=== PATIENT | male | born 1965 | race Caucasian/White ===

== ENCOUNTER 2017-12-24 20:12 | Emergency (ER) | payer OTHER ==
[2017-12-24 20:19] LABS: Glucose,Whole Blood 322 mg/dL (75-99)
[2017-12-24 20:35] LABS: Basophils % (A) 0 %; Eosinophils # (A) 0.1 k/uL (0-0.7); Eosinophils % (A) 1 %; HCT 41.6 % (39.0-53.0); HGB 14.1 gm/dL (13.0-17.5); Lymphocytes % (A) 19 %; MCH 30.1 pg (25.0-35.0); MCV 88.5 fL (80.0-100.0); Mean Platelet Volume 7.9; Monocytes # (A) 0.4 k/uL (0-1.0); Monocytes % (A) 4 %; Neutrophils # (A) 7.9 k/uL (1.3-7.7); Neutrophils % (A) 75 %; Platelet Count 149 k/uL (150-450); RDW 14.7 % (11.5-15.5); WBC 10.6 k/uL (3.8-10.6)
[2017-12-24 20:46] LABS: ALT 50 U/L (21-72); AST 48 U/L (17-59); Albumin 4.3 g/dL (3.5-5.0); Alcohol <10 mg/dL; Alkaline Phosphatase 210 U/L (38-126); Amylase 53 U/L (30-110); Anion Gap 15 mmol/L; Blood Urea Nitrogen 13 mg/dL (9-20); Carbon Dioxide 25 mmol/L (22-30); Chloride 100 mmol/L (98-107); Glucose 360 mg/dL (74-99); Lipase 305 U/L (23-300); Potassium 3.5 mmol/L (3.5-5.1); Sodium 140 mmol/L (137-145); Total Protein 7.1 g/dL (6.3-8.2)
[2017-12-24 20:51] LABS: Prothrombin Time 9.8 sec (9.0-12.0)
[2017-12-24] MEDS ORDERED: ACETAMINOPHEN IV (For NPO) 1,000 MG in EMPTY BAG 1 BAG IVPB STA (20:58)
[2017-12-24 21:00] LABS: Creatine Kinase 299 U/L (55-170)
[2017-12-24 21:00] LABS: Appearance,Urine Clear (Clear); Bilirubin,Urine Negative (Negative); Blood,Urine Small (Negative); Color,Urine Light Yellow; Glucose,Urine (UA) 4+ (Negative); Ketones,Urine Negative (Negative); Leukocyte Esterase,Urine Negative (Negative); Nitrite,Urine Negative (Negative); PH, Urine 5.5 (5.0-8.0); Protein,Urine Negative (Negative); RBC,Urine <1 /hpf (0-5); Specific Gravity,Urine 1.031 (1.001-1.035); Squamous Epithelial Cell,Urine <1 /hpf (0-4); Urobilinogen,Urine <2.0 mg/dL (<2.0); WBC,Urine <1 /hpf (0-5)
[2017-12-24] MEDS ORDERED: SODIUM CHLORIDE 0.9% 1,000 ML IV SCH (21:00)
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
[2017-12-24 21:10] LABS: Amphetamine Screen,Urine Not Detected (NotDetected); Barbiturate Screen,Urine Not Detected (NotDetected); Benzodiazepines Screen,Urine Not Detected (NotDetected); Cocaine Screen,Urine Not Detected (NotDetected); Methadone Screen, Urine Not Detected (NotDetected); Opiate Screen,Urine Not Detected (NotDetected); Oxycodone Screen, Urine Not Detected (NotDetected); Phencyclidine Screen,Urine Not Detected (NotDetected); Tricyclic Antidepressant,Urine Not Detected (NotDetected); Urn Cannabinoid Scrn Not Detected (NotDetected)
[2017-12-24 21:12] LABS: Troponin I <0.012 ng/mL (0.000-0.034)
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
[2017-12-24] MEDS ORDERED: ceFAZolin 1,000 MG in DEXTROSE/WATER 1 50ML.BAG IVPB STA (21:22)
[2017-12-24 21:23] LABS: Creatine Kinase MB 4.8 ng/mL (0.0-2.4)
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
--- NOTE | 2017-12-24 22:27 | XR ---
EXAMINATION TYPE: XR chest 1V portable DATE OF EXAM: 12/24/2017 COMPARISON: 12/24/2017 HISTORY: Chest pain TECHNIQUE: Single frontal view of the chest is obtained. FINDINGS: There is a new right-sided chest tube that appears in good position. I see no pneumothorax . Trachea is midline. Heart size is normal. There is no heart failure. There is left axillary pacemak er with the lead tips in the right ventricle. There are chest leads. IMPRESSION: Chest tube appears in good position. No pneumothorax. Heart and lungs are unchanged.
[2017-12-24 23:50] VITALS: BP 127/80; PULSE 95; RESP 16; TEMP 98.1
== END 2017-12-24 23:10 | disposition other institution (70) ==
LOC: EC 20:12
DX: S06.0X0A Concussion without loss of consciousness, initial encounter (principal); S27.0XXA Traumatic pneumothorax, initial encounter; S22.42XA Multiple fractures of ribs, left side, initial encounter for closed fracture; S01.01XA Laceration without foreign body of scalp, initial encounter; S30.1XXA Contusion of abdominal wall, initial encounter; S70.12XA Contusion of left thigh, initial encounter; S60.812A Abrasion of left wrist, initial encounter; S80.212A Abrasion, left knee, initial encounter; S80.211A Abrasion, right knee, initial encounter; S50.311A Abrasion of right elbow, initial encounter; E11.65 Type 2 diabetes mellitus with hyperglycemia; Z79.82 Long term (current) use of aspirin; Z79.4 Long term (current) use of insulin; Z79.899 Other long term (current) drug therapy; V85.0XXA Driver of special construction vehicle injured in traffic accident, initial encounter; Y92.410 Unspecified street and highway as the place of occurrence of the external cause
CPT/HCPCS: 99291; 32551; 96365 ×2; 96361; 36415; 93005; 86900; 86901; 80053; 82150; 82550; 82553; 83605; 83690; 84484; 85025; 85610; 85730; 86850; 81001; 80306; 80320; 72170; 71045; 72125; 70486; 70450; 71260; 74177; C1729; J0690; J0131; Q9967

== ENCOUNTER 2020-01-17 20:16 | Observation (INO) | payer MEDICARE, OTHER ==
[2020-01-17 20:32] LABS: Glucose,Whole Blood 287 mg/dL (75-99)
[2020-01-17 21:13] LABS: Basophils % (A) 0 %; Eosinophils # (A) 0.1 k/uL (0-0.7); Eosinophils % (A) 2 %; HCT 40.2 % (39.0-53.0); HGB 13.8 gm/dL (13.0-17.5); Lymphocytes # (A) 2.6 k/uL (1.0-4.8); Lymphocytes % (A) 43 %; MCH 31.6 pg (25.0-35.0); MCHC 34.3 g/dL (31.0-37.0); MCV 92.2 fL (80.0-100.0); Mean Platelet Volume 8.1; Monocytes # (A) 0.4 k/uL (0-1.0); Monocytes % (A) 6 %; Neutrophils # (A) 2.7 k/uL (1.3-7.7); Neutrophils % (A) 46 %; Platelet Count 140 k/uL (150-450); RBC 4.37 m/uL (4.30-5.90); RDW 12.8 % (11.5-15.5); WBC 5.9 k/uL (3.8-10.6)
[2020-01-17 21:14] LABS: VBG PH 7.37 (7.31-7.41)
[2020-01-17 21:17] LABS: Appearance,Urine Clear (Clear); Bilirubin,Urine Negative (Negative); Blood,Urine Negative (Negative); Color,Urine Yellow; Glucose,Urine (UA) 4+ (Negative); Ketones,Urine Negative (Negative); Leukocyte Esterase,Urine Negative (Negative); Nitrite,Urine Negative (Negative); PH, Urine 5.5 (5.0-8.0); Protein,Urine Trace (Negative); Specific Gravity,Urine 1.036 (1.001-1.035); Urobilinogen,Urine <2.0 mg/dL (<2.0)
[2020-01-17 21:23] LABS: ALT 26 U/L (4-49); AST 29 U/L (17-59); African American GFR (CKD) >90 (>60 ml/min/1.73 sqM); Albumin 3.3 g/dL (3.5-5.0); Alkaline Phosphatase 158 U/L (38-126); Anion Gap 6 mmol/L; Blood Urea Nitrogen 11 mg/dL (9-20); Calcium 8.2 mg/dL (8.4-10.2); Carbon Dioxide 24 mmol/L (22-30); Chloride 104 mmol/L (98-107); Glucose 289 mg/dL (74-99); Non-African American GFR(CKD) >90 (>60 ml/min/1.73 sqM); Potassium 3.4 mmol/L (3.5-5.1); Sodium 134 mmol/L (137-145); Total Protein 6.3 g/dL (6.3-8.2)
[2020-01-17 21:40] LABS: INR 0.9 (<1.2); Prothrombin Time 9.7 sec (9.0-12.0)
[2020-01-17 21:41] LABS: Partial Thromboplastin Time 21.5 sec (22.0-30.0)
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
[2020-01-17] MEDS ORDERED: MAGNESIUM SULFATE-D5W PMX 1 GM in DEXTROSE/WATER 1 100ML.BAG IVPB ONE (22:23)
--- NOTE | 2020-01-17 22:34 | ED ---
General Adult HPI - General Chief complaint: Recheck/Abnormal Lab/Rx Stated complaint: Hyperglycemia Time Seen by Provider: 01/17/20 20:20 Source: EMS Mode of arrival: EMS Limitations: no limitations - History of Present Illness Initial comments: The patient is a 54-year-old male with past medical history of diabetes who presents to the emergency department from [facility]. He went into their hospital with reported nausea and diffuse abdominal pain. Blood sugar upon presentation was in the 700s. Patient states he checks his sugars and has been running high recently. He has been taking his insulin as directed denies missing any doses. Denies history of DKA. He was found to be hyperglycemic without signs of DKA. He was placed on an insulin drip and transferred. They did DC his insulin drip prior to arrival the patient's sugar was 200. Denies fevers, chills or vomiting. Denies back or flank pain. No changes in his bowel or bladder habits. Arrives at our facility and begins to report chest pain. There are no other alleviating, precipitating or modifying factors - Related Data Home Medications Medication Instructions Recorded Confirmed Aspirin [Adult Low Dose Aspirin EC] 81 mg PO DAILY 12/24/17 01/18/20 Metoprolol Succinate (ER) [Toprol 25 mg PO DAILY 12/24/17 01/18/20 XL] Atorvastatin [Lipitor] 20 mg PO DAILY 01/17/20 01/18/20 Empagliflozin [Jardiance] 25 mg PO DAILY 01/17/20 01/18/20 Lisinopril 20 mg PO DAILY 01/17/20 01/18/20 Magnesium Oxide 400 mg PO DAILY 01/17/20 01/18/20 Midodrine [ProAmatine] 5 mg PO TID 01/17/20 01/18/20 Sertraline HCl [Zoloft] 200 mg PO HS 01/17/20 01/18/20 metFORMIN HCL 1,000 mg PO BID 01/17/20 01/18/20 traZODone HCL [Desyrel] 50 mg PO HS 01/17/20 01/18/20 Previous Rx's Medication Instructions Recorded Acetaminophen Tab [Tylenol] 500 mg PO Q6HR PRN #40 tab 01/20/20 Cefuroxime Axetil [Ceftin] 500 mg PO BID 5 Days #10 tab 06/26/20 Insulin Glargine,Hum.rec.anlog 35 unit SQ HS 30 Days #2 pen 01/20/20 [Lantus Solostar] Allergies Allergy/AdvReac Type Severity Reaction Status Date / Time No Known Allergies Allergy Verified 01/17/20 21:27 Review of Systems ROS Statement: Those systems with pertinent positive or pertinent negative responses have been documented in the HPI. ROS Other: All systems not noted in ROS Statement are negative. Past Medical History Past Medical History: COPD, Diabetes Mellitus, GERD/Reflux, Hypertension Additional Past Medical History / Comment(s): pacemaker History of Any Multi-Drug Resistant Organisms: None Reported Past Surgical History: Unable to Obtain, Pacemaker Additional Past Surgical History / Comment(s): pacemaker implanted 2017. Past Psychological History: No Psychological Hx Reported Smoking Status: Never smoker Past Alcohol Use History: None Reported Past Drug Use History: None Reported - Past Family History Father Additional Family Medical History / Comment(s): pacer Mother Family Medical History: Diabetes Mellitus Additional Family Medical History / Comment(s): pacer Brother(s) Family Medical History: Coronary Artery Disease (CAD), Diabetes Mellitus Additional Family Medical History / Comment(s): pacer Sister(s) Additional Family Medical History / Comment(s): "hole in heart" General Exam Limitations: no limitations General appearance: alert, in no apparent distress Head exam: Present: atraumatic, normocephalic, normal inspection Eye exam: Present: normal appearance, PERRL, EOMI. Absent: scleral icterus, conjunctival injection, periorbital swelling ENT exam: Present: normal exam, mucous membranes moist Neck exam: Present: normal inspection. Absent: tenderness, meningismus, lymphadenopathy Respiratory exam: Present: normal lung sounds bilaterally. Absent: respiratory distress, wheezes, rales, rhonchi, stridor Cardiovascular Exam: Present: regular rate, normal rhythm, normal heart sounds. Absent: systolic murmur, diastolic murmur, rubs, gallop, clicks GI/Abdominal exam: Present: soft, normal bowel sounds. Absent: distended, tenderness, guarding, rebound, rigid Extremities exam: Present: normal inspection, full ROM, normal capillary refill. Absent: tenderness, pedal edema, joint swelling, calf tenderness Back exam: Present: normal inspection Neurological exam: Present: alert, oriented X3, CN II-XII intact Psychiatric exam: Present: normal affect, normal mood Skin exam: Present: warm, dry, intact, normal color. Absent: rash Course Vital Signs 01/17/20 01/17/20 20:18 22:05 Temperature 98.4 F 98.7 F Pulse Rate 89 73 Respiratory 18 18 Rate Blood Pressure 146/90 136/93 O2 Sat by Pulse 98 98 Oximetry EKG Findings - EKG Comments: EKG Findings:: EKG demonstrates atrial paced rhythm with a rate of 69. IN interval to 24. QRS 94. QTC of 439. No acute ST segment elevations or depressions concerning for ischemic changes Medical Decision Making - Medical Decision Making Pulmonary the patient is placed into room 2. A thorough history and physical exam was performed. Patient does begin to complain of chest pain and therefore an EKG and chest x-ray was performed. I did repeat patient's laboratory studies. Blood glucose has improved to 287. Potassium low at 3.4. Magnesium 1.6. Troponin is negative. Urinalysis is negative for ketones but positive for 4+ glucose. I discontinued the patient's insulin drip at this time as he has no gap. Magnesium is replaced. Chest x-ray demonstrates no active cardiopulmonary process. I discussed the case with Dr. Schafer who accepted admission for the patient. Patient was then transferred to floor in stable condition - Lab Data Result diagrams: 01/18/20 03:43 01/18/20 03:43 Lab Results 01/17/20 01/17/20 01/17/20 Range/Units 20:30 20:58 20:58 WBC 5.9 (3.8-10.6) k/uL RBC 4.37 (4.30-5.90) m/uL Hgb 13.8 (13.0-17.5) gm/dL Hct 40.2 (39.0-53.0) % MCV 92.2 (80.0-100.0) fL MCH 31.6 (25.0-35.0) pg MCHC 34.3 (31.0-37.0) g/dL RDW 12.8 (11.5-15.5) % Plt Count 140 L (150-450) k/uL Neutrophils % 46 % Lymphocytes % 43 % Monocytes % 6 % Eosinophils % 2 % Basophils % 0 % Neutrophils # 2.7 (1.3-7.7) k/uL Lymphocytes # 2.6 (1.0-4.8) k/uL Monocytes # 0.4 (0-1.0) k/uL Eosinophils # 0.1 (0-0.7) k/uL Basophils # 0.0 (0-0.2) k/uL PT (9.0-12.0) sec INR (<1.2) APTT (22.0-30.0) sec VBG pH (7.31-7.41) VBG pCO2 (37-51) mmHg VBG HCO3 (24-28) mmol/L Sodium 134 L (137-145) mmol/L Potassium 3.4 L (3.5-5.1) mmol/L Chloride 104 (98-107) mmol/L Carbon Dioxide 24 (22-30) mmol/L Anion Gap 6 mmol/L BUN 11 (9-20) mg/dL Creatinine 0.52 L (0.66-1.25) mg/dL Est GFR (CKD-EPI)AfAm >90 (>60 ml/min/1.73 sqM) Est GFR (CKD-EPI)NonAf >90 (>60 ml/min/1.73 sqM) Glucose 289 H (74-99) mg/dL POC Glucose (mg/dL) 287 H (75-99) mg/dL POC Glu [place]er ID Jacob, Amber Plasma Lactic Acid Giles (0.7-2.0) mmol/L Calcium 8.2 L (8.4-10.2) mg/dL Magnesium (1.6-2.3) mg/dL Total Bilirubin 1.0 (0.2-1.3) mg/dL AST 29 (17-59) U/L ALT 26 (4-49) U/L Alkaline Phosphatase 158 H (38-126) U/L Troponin I (0.000-0.034) ng/mL Total Protein 6.3 (6.3-8.2) g/dL Albumin 3.3 L (3.5-5.0) g/dL Lipase 222 (23-300) U/L Urine Color Urine Appearance (Clear) Urine pH (5.0-8.0) Ur Specific [place] (1.001-1.035) Urine Protein (Negative) Urine Glucose (UA) (Negative) Urine Ketones (Negative) Urine Blood (Negative) Urine Nitrite (Negative) Urine Bilirubin (Negative) Urine Urobilinogen (<2.0) mg/dL Ur Leukocyte Esterase (Negative) Coronavirus (PCR) (Not Detected) 01/17/20 01/17/20 01/17/20 Range/Units 20:58 20:58 21:03 WBC (3.8-10.6) k/uL RBC (4.30-5.90) m/uL Hgb (13.0-17.5) gm/dL Hct (39.0-53.0) % MCV (80.0-100.0) fL MCH (25.0-35.0) pg MCHC (31.0-37.0) g/dL RDW (11.5-15.5) % Plt Count (150-450) k/uL Neutrophils % % Lymphocytes % % Monocytes % % Eosinophils % % Basophils % % Neutrophils # (1.3-7.7) k/uL Lymphocytes # (1.0-4.8) k/uL Monocytes # (0-1.0) k/uL Eosinophils # (0-0.7) k/uL Basophils # (0-0.2) k/uL PT (9.0-12.0) sec INR (<1.2) APTT (22.0-30.0) sec VBG pH 7.37 (7.31-7.41) VBG pCO2 46 (37-51) mmHg VBG HCO3 26 (24-28) mmol/L Sodium (137-145) mmol/L Potassium (3.5-5.1) mmol/L Chloride (98-107) mmol/L Carbon Dioxide (22-30) mmol/L Anion Gap mmol/L BUN (9-20) mg/dL Creatinine (0.66-1.25) mg/dL Est GFR (CKD-EPI)AfAm (>60 ml/min/1.73 sqM) Est GFR (CKD-EPI)NonAf (>60 ml/min/1.73 sqM) Glucose (74-99) mg/dL POC Glucose (mg/dL) (75-99) mg/dL POC Glu [place]er ID Plasma Lactic Acid Giles 1.5 (0.7-2.0) mmol/L Calcium (8.4-10.2) mg/dL Magnesium (1.6-2.3) mg/dL Total Bilirubin (0.2-1.3) mg/dL AST (17-59) U/L ALT (4-49) U/L Alkaline Phosphatase (38-126) U/L Troponin I (0.000-0.034) ng/mL Total Protein (6.3-8.2) g/dL Albumin (3.5-5.0) g/dL Lipase (23-300) U/L Urine Color Yellow Urine Appearance Clear (Clear) Urine pH 5.5 (5.0-8.0) Ur Specific [place] 1.036 H (1.001-1.035) Urine Protein Trace H (Negative) Urine Glucose (UA) 4+ H (Negative) Urine Ketones Negative (Negative) Urine Blood Negative (Negative) Urine Nitrite Negative (Negative) Urine Bilirubin Negative (Negative) Urine Urobilinogen <2.0 (<2.0) mg/dL Ur Leukocyte Esterase Negative (Negative) Coronavirus (PCR) (Not Detected) 01/17/20 01/17/20 01/17/20 Range/Units 21:05 21:05 21:05 WBC (3.8-10.6) k/uL RBC (4.30-5.90) m/uL Hgb (13.0-17.5) gm/dL Hct (39.0-53.0) % MCV (80.0-100.0) fL MCH (25.0-35.0) pg MCHC (31.0-37.0) g/dL RDW (11.5-15.5) % Plt Count (150-450) k/uL Neutrophils % % Lymphocytes % % Monocytes % % Eosinophils % % Basophils % % Neutrophils # (1.3-7.7) k/uL Lymphocytes # (1.0-4.8) k/uL Monocytes # (0-1.0) k/uL Eosinophils # (0-0.7) k/uL Basophils # (0-0.2) k/uL PT 9.7 (9.0-12.0) sec INR 0.9 (<1.2) APTT 21.5 L (22.0-30.0) sec VBG pH (7.31-7.41) VBG pCO2 (37-51) mmHg VBG HCO3 (24-28) mmol/L Sodium (137-145) mmol/L Potassium (3.5-5.1) mmol/L Chloride (98-107) mmol/L Carbon Dioxide (22-30) mmol/L Anion Gap mmol/L BUN (9-20) mg/dL Creatinine (0.66-1.25) mg/dL Est GFR (CKD-EPI)AfAm (>60 ml/min/1.73 sqM) Est GFR (CKD-EPI)NonAf (>60 ml/min/1.73 sqM) Glucose (74-99) mg/dL POC Glucose (mg/dL) (75-99) mg/dL POC Glu [place]er ID Plasma Lactic Acid Giles (0.7-2.0) mmol/L Calcium (8.4-10.2) mg/dL Magnesium 1.6 (1.6-2.3) mg/dL Total Bilirubin (0.2-1.3) mg/dL AST (17-59) U/L ALT (4-49) U/L Alkaline Phosphatase (38-126) U/L Troponin I <0.012 (0.000-0.034) ng/mL Total Protein (6.3-8.2) g/dL Albumin (3.5-5.0) g/dL Lipase (23-300) U/L Urine Color Urine Appearance (Clear) Urine pH (5.0-8.0) Ur Specific [place] (1.001-1.035) Urine Protein (Negative) Urine Glucose (UA) (Negative) Urine Ketones (Negative) Urine Blood (Negative) Urine Nitrite (Negative) Urine Bilirubin (Negative) Urine Urobilinogen (<2.0) mg/dL Ur Leukocyte Esterase (Negative) Coronavirus (PCR) (Not Detected) 01/17/20 01/17/20 01/18/20 Range/Units 23:22 23:23 01:05 WBC (3.8-10.6) k/uL RBC (4.30-5.90) m/uL Hgb (13.0-17.5) gm/dL Hct (39.0-53.0) % MCV (80.0-100.0) fL MCH (25.0-35.0) pg MCHC (31.0-37.0) g/dL RDW (11.5-15.5) % Plt Count (150-450) k/uL Neutrophils % % Lymphocytes % % Monocytes % % Eosinophils % % Basophils % % Neutrophils # (1.3-7.7) k/uL Lymphocytes # (1.0-4.8) k/uL Monocytes # (0-1.0) k/uL Eosinophils # (0-0.7) k/uL Basophils # (0-0.2) k/uL PT (9.0-12.0) sec INR (<1.2) APTT (22.0-30.0) sec VBG pH (7.31-7.41) VBG pCO2 (37-51) mmHg VBG HCO3 (24-28) mmol/L Sodium (137-145) mmol/L Potassium (3.5-5.1) mmol/L Chloride (98-107) mmol/L Carbon Dioxide (22-30) mmol/L Anion Gap mmol/L BUN (9-20) mg/dL Creatinine (0.66-1.25) mg/dL Est GFR (CKD-EPI)AfAm (>60 ml/min/1.73 sqM) Est GFR (CKD-EPI)NonAf (>60 ml/min/1.73 sqM) Glucose (74-99) mg/dL POC Glucose (mg/dL) 360 H 381 H (75-99) mg/dL POC Glu [place] Lenora Corrigan Jennifer Plasma Lactic Acid Giles (0.7-2.0) mmol/L Calcium (8.4-10.2) mg/dL Magnesium (1.6-2.3) mg/dL Total Bilirubin (0.2-1.3) mg/dL AST (17-59) U/L ALT (4-49) U/L Alkaline Phosphatase (38-126) U/L Troponin I (0.000-0.034) ng/mL Total Protein (6.3-8.2) g/dL Albumin (3.5-5.0) g/dL Lipase (23-300) U/L Urine Color Urine Appearance (Clear) Urine pH (5.0-8.0) Ur Specific [place] (1.001-1.035) Urine Protein (Negative) Urine Glucose (UA) (Negative) Urine Ketones (Negative) Urine Blood (Negative) Urine Nitrite (Negative) Urine Bilirubin (Negative) Urine Urobilinogen (<2.0) mg/dL Ur Leukocyte Esterase (Negative) Coronavirus (PCR) Not Detected (Not Detected) 01/18/20 01/18/20 01/18/20 Range/Units 02:43 03:43 03:43 WBC 6.0 (3.8-10.6) k/uL RBC 4.59 (4.30-5.90) m/uL Hgb 14.1 (13.0-17.5) gm/dL Hct 43.7 (39.0-53.0) % MCV 95.2 (80.0-100.0) fL MCH 30.8 (25.0-35.0) pg MCHC 32.3 (31.0-37.0) g/dL RDW 13.2 (11.5-15.5) % Plt Count 139 L (150-450) k/uL Neutrophils % 47 % Lymphocytes % 41 % Monocytes % 7 % Eosinophils % 3 % Basophils % 1 % Neutrophils # 2.8 (1.3-7.7) k/uL Lymphocytes # 2.5 (1.0-4.8) k/uL Monocytes # 0.4 (0-1.0) k/uL Eosinophils # 0.2 (0-0.7) k/uL Basophils # 0.0 (0-0.2) k/uL PT (9.0-12.0) sec INR (<1.2) APTT (22.0-30.0) sec VBG pH (7.31-7.41) VBG pCO2 (37-51) mmHg VBG HCO3 (24-28) mmol/L Sodium 136 L (137-145) mmol/L Potassium 3.6 (3.5-5.1) mmol/L Chloride 105 (98-107) mmol/L Carbon Dioxide 25 (22-30) mmol/L Anion Gap 6 mmol/L BUN 11 (9-20) mg/dL Creatinine 0.58 L (0.66-1.25) mg/dL Est GFR (CKD-EPI)AfAm >90 (>60 ml/min/1.73 sqM) Est GFR (CKD-EPI)NonAf >90 (>60 ml/min/1.73 sqM) Glucose 299 H (74-99) mg/dL POC Glucose (mg/dL) (75-99) mg/dL POC Glu [place]er ID Plasma Lactic Acid Giles (0.7-2.0) mmol/L Calcium 8.2 L (8.4-10.2) mg/dL Magnesium 1.8 (1.6-2.3) mg/dL Total Bilirubin (0.2-1.3) mg/dL AST (17-59) U/L ALT (4-49) U/L Alkaline Phosphatase (38-126) U/L Troponin I <0.012 (0.000-0.034) ng/mL Total Protein (6.3-8.2) g/dL Albumin (3.5-5.0) g/dL Lipase (23-300) U/L Urine Color Urine Appearance (Clear) Urine pH (5.0-8.0) Ur Specific [place] (1.001-1.035) Urine Protein (Negative) Urine Glucose (UA) (Negative) Urine Ketones (Negative) Urine Blood (Negative) Urine Nitrite (Negative) Urine Bilirubin (Negative) Urine Urobilinogen (<2.0) mg/dL Ur Leukocyte Esterase (Negative) Coronavirus (PCR) (Not Detected) 01/18/20 01/18/20 01/18/20 Range/Units 06:21 11:04 16:42 WBC (3.8-10.6) k/uL RBC (4.30-5.90) m/uL Hgb (13.0-17.5) gm/dL Hct (39.0-53.0) % MCV (80.0-100.0) fL MCH (25.0-35.0) pg MCHC (31.0-37.0) g/dL RDW (11.5-15.5) % Plt Count (150-450) k/uL Neutrophils % % Lymphocytes % % Monocytes % % Eosinophils % % Basophils % % Neutrophils # (1.3-7.7) k/uL Lymphocytes # (1.0-4.8) k/uL Monocytes # (0-1.0) k/uL Eosinophils # (0-0.7) k/uL Basophils # (0-0.2) k/uL PT (9.0-12.0) sec INR (<1.2) APTT (22.0-30.0) sec VBG pH (7.31-7.41) VBG pCO2 (37-51) mmHg VBG HCO3 (24-28) mmol/L Sodium (137-145) mmol/L Potassium (3.5-5.1) mmol/L Chloride (98-107) mmol/L Carbon Dioxide (22-30) mmol/L Anion Gap mmol/L BUN (9-20) mg/dL Creatinine (0.66-1.25) mg/dL Est GFR (CKD-EPI)AfAm (>60 ml/min/1.73 sqM) Est GFR (CKD-EPI)NonAf (>60 ml/min/1.73 sqM) Glucose (74-99) mg/dL POC Glucose (mg/dL) 252 H 306 H 256 H (75-99) mg/dL POC Glu [place] Ary Kendrick, Regi Quintanilla Plasma Lactic Acid Giles (0.7-2.0) mmol/L Calcium (8.4-10.2) mg/dL Magnesium (1.6-2.3) mg/dL Total Bilirubin (0.2-1.3) mg/dL AST (17-59) U/L ALT (4-49) U/L Alkaline Phosphatase (38-126) U/L Troponin I (0.000-0.034) ng/mL Total Protein (6.3-8.2) g/dL Albumin (3.5-5.0) g/dL Lipase (23-300) U/L Urine Color Urine Appearance (Clear) Urine pH (5.0-8.0) Ur Specific [place] (1.001-1.035) Urine Protein (Negative) Urine Glucose (UA) (Negative) Urine Ketones (Negative) Urine Blood (Negative) Urine Nitrite (Negative) Urine Bilirubin (Negative) Urine Urobilinogen (<2.0) mg/dL Ur Leukocyte Esterase (Negative) Coronavirus (PCR) (Not Detected) 01/18/20 01/19/20 01/19/20 Range/Units 19:54 06:42 11:31 WBC (3.8-10.6) k/uL RBC (4.30-5.90) m/uL Hgb (13.0-17.5) gm/dL Hct (39.0-53.0) % MCV (80.0-100.0) fL MCH (25.0-35.0) pg MCHC (31.0-37.0) g/dL RDW (11.5-15.5) % Plt Count (150-450) k/uL Neutrophils % % Lymphocytes % % Monocytes % % Eosinophils % % Basophils % % Neutrophils # (1.3-7.7) k/uL Lymphocytes # (1.0-4.8) k/uL Monocytes # (0-1.0) k/uL Eosinophils # (0-0.7) k/uL Basophils # (0-0.2) k/uL PT (9.0-12.0) sec INR (<1.2) APTT (22.0-30.0) sec VBG pH (7.31-7.41) VBG pCO2 (37-51) mmHg VBG HCO3 (24-28) mmol/L Sodium (137-145) mmol/L Potassium (3.5-5.1) mmol/L Chloride (98-107) mmol/L Carbon Dioxide (22-30) mmol/L Anion Gap mmol/L BUN (9-20) mg/dL Creatinine (0.66-1.25) mg/dL Est GFR (CKD-EPI)AfAm (>60 ml/min/1.73 sqM) Est GFR (CKD-EPI)NonAf (>60 ml/min/1.73 sqM) Glucose (74-99) mg/dL POC Glucose (mg/dL) 175 H 83 146 H (75-99) mg/dL POC Glu [place] Ismael Campos Jamie Matthews, Yolanda Plasma Lactic Acid Giles (0.7-2.0) mmol/L Calcium (8.4-10.2) mg/dL Magnesium (1.6-2.3) mg/dL Total Bilirubin (0.2-1.3) mg/dL AST (17-59) U/L ALT (4-49) U/L Alkaline Phosphatase (38-126) U/L Troponin I (0.000-0.034) ng/mL Total Protein (6.3-8.2) g/dL Albumin (3.5-5.0) g/dL Lipase (23-300) U/L Urine Color Urine Appearance (Clear) Urine pH (5.0-8.0) Ur Specific [place] (1.001-1.035) Urine Protein (Negative) Urine Glucose (UA) (Negative) Urine Ketones (Negative) Urine Blood (Negative) Urine Nitrite (Negative) Urine Bilirubin (Negative) Urine Urobilinogen (<2.0) mg/dL Ur Leukocyte Esterase (Negative) Coronavirus (PCR) (Not Detected) 01/19/20 01/19/20 01/20/20 Range/Units 16:38 20:57 06:50 WBC (3.8-10.6) k/uL RBC (4.30-5.90) m/uL Hgb (13.0-17.5) gm/dL Hct (39.0-53.0) % MCV (80.0-100.0) fL MCH (25.0-35.0) pg MCHC (31.0-37.0) g/dL RDW (11.5-15.5) % Plt Count (150-450) k/uL Neutrophils % % Lymphocytes % % Monocytes % % Eosinophils % % Basophils % % Neutrophils # (1.3-7.7) k/uL Lymphocytes # (1.0-4.8) k/uL Monocytes # (0-1.0) k/uL Eosinophils # (0-0.7) k/uL Basophils # (0-0.2) k/uL PT (9.0-12.0) sec INR (<1.2) APTT (22.0-30.0) sec VBG pH (7.31-7.41) VBG pCO2 (37-51) mmHg VBG HCO3 (24-28) mmol/L Sodium (137-145) mmol/L Potassium (3.5-5.1) mmol/L Chloride (98-107) mmol/L Carbon Dioxide (22-30) mmol/L Anion Gap mmol/L BUN (9-20) mg/dL Creatinine (0.66-1.25) mg/dL Est GFR (CKD-EPI)AfAm (>60 ml/min/1.73 sqM) Est GFR (CKD-EPI)NonAf (>60 ml/min/1.73 sqM) Glucose (74-99) mg/dL POC Glucose (mg/dL) 280 H 166 H 155 H (75-99) mg/dL POC Glu [place] ID Caryn Carcamo Ashley Delia Olivares Plasma Lactic Acid Giles (0.7-2.0) mmol/L Calcium (8.4-10.2) mg/dL Magnesium (1.6-2.3) mg/dL Total Bilirubin (0.2-1.3) mg/dL AST (17-59) U/L ALT (4-49) U/L Alkaline Phosphatase (38-126) U/L Troponin I (0.000-0.034) ng/mL Total Protein (6.3-8.2) g/dL Albumin (3.5-5.0) g/dL Lipase (23-300) U/L Urine Color Urine Appearance (Clear) Urine pH (5.0-8.0) Ur Specific [place] (1.001-1.035) Urine Protein (Negative) Urine Glucose (UA) (Negative) Urine Ketones (Negative) Urine Blood (Negative) Urine Nitrite (Negative) Urine Bilirubin (Negative) Urine Urobilinogen (<2.0) mg/dL Ur Leukocyte Esterase (Negative) Coronavirus (PCR) (Not Detected) Disposition Clinical Impression: Hyperglycemia, Chest pain, Hypomagnesemia Disposition: ADMITTED IP TO THIS [facility] Condition: Stable Is patient prescribed a controlled substance at d/c from ED?: No Decision to Admit Reason: Admit from EC Decision Date: 01/17/20 Decision Time: 22:38
[2020-01-17] MEDS ORDERED: NALOXONE 0.4 MG/ML 1 ML VIAL IV PRN (22:39)
[2020-01-17] MEDS ORDERED: ALPRAZolam 0.25 MG TAB PO PRN (23:17)
[2020-01-17] MEDS ORDERED: HYDROcodone/APAP 5-325MG 1 EACH TAB PO PRN (23:17)
[2020-01-17] MEDS ORDERED: HYDROmorphone 0.5 MG/0.5 ML SYRINGE IVP PRN (23:17)
[2020-01-17 23:24] LABS: Glucose,Whole Blood 360 mg/dL (75-99)
[2020-01-17] MEDS: INSULIN ASPART (NovoLOG) 100 UNIT/ML VIAL SQ SCH (23:37)
[2020-01-18 01:07] LABS: Glucose,Whole Blood 381 mg/dL (75-99)
[2020-01-18] MEDS: INSULIN ASPART (NovoLOG) 100 UNIT/ML VIAL SQ SCH ×8 (01:08→21:38)
--- NOTE | 2020-01-18 02:13 | HP ---
HISTORY AND PHYSICAL DATE OF SERVICE: 01/17/2020 CHIEF COMPLAINT: Hyperglycemia. HISTORY OF PRESENT ILLNESS: This 54-year-old gentleman with a past medical history of diabetes mellitus, history of COPD, GERD, hypertension, history of pacemaker being followed by Dr. Pedro Pablo Yee in the outpatient setting was also seeing Dr. Lee. The patient was on insulin regime, but because of insurance reasons the patient is not seeing Dr. Lee anymore. So the patient apparently on NovoLog 12, 12 and 15 at night and 60 of Lantus. The blood sugar was 800 in the hospital and after insulin it dropped to around 200 and the patient subsequently transferred to [facility] admitted for further evaluation and treatment. Most recent hemoglobin A1c was 17 according to him. There is no history of any fever or rigors. No history of headache, loss of consciousness, or seizures. PAST MEDICAL HISTORY: History of diabetes type 2, GERD, hypertension, pacemaker. MEDICATIONS: Home medications are: 1. Trazodone 50 mg at bedtime. 2. Zoloft 200 mg daily. 3. Humalog as mentioned earlier. 4. ProAmatine 5 mg t.i.d. 5. Magnesium oxide 400 mg daily. 6. Jardiance 25 mg daily. 7. Lantus 60 units subcu daily. 8. Lipitor 20 mg daily. 9. Aspirin 81 mg p.o. daily. 10.Insulin lispro KwikPen pen 12 units subcu b.i.d. 11.Actos 30 mg p.o. daily. 12.Lisinopril 20 mg p.o. daily. 13.Metformin 1000 mg p.o. b.i.d. 14.Toprol-XL 25 mg p.o. daily. ALLERGIES: None. FAMILY HISTORY: No history of heart disease or strokes in the family. SOCIAL HISTORY: No history of smoking. No history of alcohol intake. REVIEW OF SYSTEMS: ENT: No diminished hearing or diminished vision. CARDIOVASCULAR SYSTEM: No angina, palpitations. RESPIRATORY SYSTEM: No cough or hemoptysis. GI: No nausea. : No dysuria. NERVOUS SYSTEM: No numbness or weakness. ALLERGY/IMMUNOLOGY: No asthma or hayfever. MUSCULOSKELETAL: As mentioned earlier. HEMATOLOGY: No history of anemia. ENDOCRINE: Diabetes mellitus. CONSTITUTIONAL: As mentioned earlier. DERMATOLOGY: Negative. RHEUMATOLOGY: Negative. PSYCHIATRY: As mentioned earlier. PHYSICAL EXAMINATION: The patient is alert and oriented x3. Pulse 73, blood pressure 136/93, respiration 18, temperature 98.7, pulse ox 98% on room air. HEENT: Conjunctivae normal. Oral mucosa moist. NECK: No jugular venous distention. No carotid bruit. No lymph node enlargement. CARDIOVASCULAR: S1, S2 muffled. RESPIRATORY: Breath sounds diminished at the bases. No rhonchi. No crackles. ABDOMEN: Soft, nontender. No mass palpable. LEGS: No edema. No swelling. NERVOUS SYSTEM: Higher functions as mentioned. Moves all 4 limbs. No focal motor or sensory deficits. LYMPHATICS: No lymphadenopathy of the neck, axillae or groin. SKIN: No ulcer, rash or bleeding. JOINTS: No active deforming arthropathy. LABS: WBC 5.9, hemoglobin 13.8, platelets are 140. Sodium 134, potassium 3.4. Glucose is 287 and 289. ASSESSMENT: 1. Diabetes mellitus type 2, uncontrolled with hyperosmolar diabetic state. chest pain r/o cad 2. Hyponatremia. 3. Hypokalemia. 4. Mild thrombocytopenia. 5. Hemoglobin A1c of 17. 6. Chronic obstructive pulmonary disease. 7. Diabetes mellitus type 2. 8. Gastroesophageal reflux disease. 9. Hypertension. 10.History of pacemaker. 11.FULL CODE. RECOMMENDATIONS AND DISCUSSION: This 54-year-old gentleman who presented with multiple medical issues, at this time I recommend continue with current medications. Monitor blood sugars closely. Resume the home dose of insulin. Otherwise, rest of medications. DVT prophylaxis. Guarded prognosis because of multiple complex medical conditions. Otherwise we will adjust his insulin regimen also. Prognosis guarded. Discussed with the patient. A copy of dictation forwarded to Dr. Pedro Pablo Yee who is the primary physician. MMODL / IJN: [id number] / MTDD
[2020-01-18 06:23] LABS: Glucose,Whole Blood 252 mg/dL (75-99)
[2020-01-18] MEDS: NON FORMULARY DRUG (Empagliflozin [Jardiance] 25 MG) PO SCH (08:07)
[2020-01-18] MEDS: ASPIRIN 81 MG PO SCH (08:12)
[2020-01-18] MEDS: lisinopriL 20 MG TAB PO SCH (08:12)
[2020-01-18] MEDS: MAGNESIUM OXIDE 400 MG TAB PO SCH (08:12)
[2020-01-18] MEDS: PANTOPRAZOLE 40 MG TABLET PO SCH (08:12)
[2020-01-18] MEDS: HEPARIN SODIUM,PORCINE 5,000 UNIT/ML 1 ML VIAL SQ SCH ×2 (08:12→21:37)
[2020-01-18] MEDS: MIDODRINE 5 MG TAB PO SCH ×2 (08:14→17:48)
[2020-01-18] MEDS: ACETAMINOPHEN TAB 500 MG TAB PO PRN (08:20)
[2020-01-18] MEDS ORDERED: INSULIN DETEMIR (LEVEMIR) 100 UNIT/ML SYR SQ SCH ×2 (09:00→21:00)
[2020-01-18] MEDS ORDERED: DOBUTamine DRIP for NUC MED 500 MG in DEXTROSE/WATER 1 250ML.BAG IV ONE (09:34)
--- NOTE | 2020-01-18 09:41 | P.CRDCN ---
History of Present Illness History of present illness: HISTORY OF PRESENTING ILLNESS This is a pleasant 54-year-old male past medical history significant for hypertension, COPD, diabetes mellitus and permanent pacemaker implantation. He follows in the office with Dr. Meraz. We have been asked to see in consultation for chest pain. He presented to [facility] yesterday with symptoms of abdominal discomfort and associated nausea after eating a sub sandwich. On arrival to [facility] his blood sugar was over 700. He was initiated on an insulin infusion and transferred here. He also described feeling a burning sensation that radiated from his abdomen up to the mid sternal region. There was no radiation through to the back, down the arm, into the neck or the jaw. He had no associated shortness of breath, dizziness or palpitations. Per the patient he underwent cardiac catheterization in 2018 that was normal. At that time he was having frequent episodes of syncope requiring permanent pacemaker implantation. He underwent a CT of his abdomen and pelvis at [facility] that was unremarkable. DIAGNOSTICS EKG reveals atrial paced rhythm with no ST or T-wave abnormalities. Chest xray negative for any acute cardiopulmonary process. Laboratory reviewed, WBC 5.9, hemoglobin 13.8, platelets 140, sodium 134, potassium 3.4, creatinine 0.52, magnesium 1.6, alkaline phosphatase 158, cardiac enzymes negative 2. Current cardiac medications include aspirin 81 mg daily, atorvastatin 20 mg daily, lisinopril 20 mg daily, Toprol 25 mg daily and midodrine 5 mg 3 times a day. REVIEW OF SYSTEMS At the time of my exam: CONSTITUTIONAL: Denies fever or chills. CARDIOVASCULAR: Denies chest pain, shortness of breath, orthopnea, PND or palpitations. RESPIRATORY: Denies cough. GASTROINTESTINAL: Denies abdominal pain, diarrhea, constipation, nausea or vomiting. MUSCULOSKELETAL: Denies myalgias. NEUROLOGIC: Denies numbness, tingling or weakness. ENDOCRINE: Denies fatigue, weight change, polydipsia or polyurina. GENITOURINARY: Denies burning, hematuria or urgency with micturation. HEMATOLOGIC: Denies history of anemia or bleeding. PHYSICAL EXAMINATION Blood pressure 145/82 heart rate 67 afebrile and maintaining oxygen saturation on room air. CONSTITUTIONAL: No apparent distress. HEENT: Head is normocephalic. Pupils are equal, round. Sclerae anicteric. Mucous membranes of the mouth are moist. No JVD. No carotid bruit. CHEST EXAMINATION: Lungs are clear to auscultation. No chest wall tenderness is noted on palpation or with deep breathing. HEART EXAMINATION: Regular rate and rhythm. S1, S2 heard. No murmurs, gallops or rub. ABDOMEN: Soft, very mildly tender on deep palpation. Positive bowel sounds. EXTREMITIES: 2+ peripheral pulses, no lower extremity edema and no calf tenderness. NEUROLOGIC EXAMINATION: Patient is awake, alert and oriented x3. ASSESSMENT Chest pain, atypical for angina. An acute coronary event has been ruled out. Diabetes mellitus, uncontrolled Hypertension Dyslipidemia Permanent pacemaker implantation PLAN An acute coronary event has been ruled out. Obtain 2-D echocardiogram and Doppler study to assess cardiac structure and function. Perform exercise stress test to assess for stress-induced cardiac ischemia. Thank you kindly for this consultation. Nurse Practitioner note has been reviewed, I agree with a documented findings and plan of care. Patient was seen and examined. Past Medical History Past Medical History: COPD, Diabetes Mellitus, GERD/Reflux, Hypertension Additional Past Medical History / Comment(s): pacemaker History of Any Multi-Drug Resistant Organisms: None Reported Past Surgical History: Back Surgery, Orthopedic Surgery, Pacemaker, Tonsillectomy Additional Past Surgical History / Comment(s): pacemaker implanted 2017 Past Anesthesia/Blood Transfusion Reactions: No Reported Reaction Type of Cardiac Device: Permanent Pacemaker Device Placement Date:: 2017 Past Psychological History: No Psychological Hx Reported Smoking Status: Never smoker Past Alcohol Use History: None Reported Past Drug Use History: None Reported - Past Family History Father Additional Family Medical History / Comment(s): pacer Mother Family Medical History: Diabetes Mellitus Additional Family Medical History / Comment(s): pacer Brother(s) Family Medical History: Coronary Artery Disease (CAD), Diabetes Mellitus Additional Family Medical History / Comment(s): pacer Sister(s) Additional Family Medical History / Comment(s): "hole in heart" Medications and Allergies Home Medications Medication Instructions Recorded Confirmed Type Aspirin [Adult Low Dose Aspirin EC] 81 mg PO DAILY 12/24/17 01/18/20 History Insulin Glargine,Hum.rec.anlog 60 unit SQ DAILY 12/24/17 01/18/20 History [Lantus Solostar] Insulin Lispro [humaLOG Kwikpen] 12 unit SQ BID-W/MEALS 12/24/17 01/18/20 Hist ory Metoprolol Succinate (ER) [Toprol 25 mg PO DAILY 12/24/17 01/18/20 History Xl] Atorvastatin [Lipitor] 20 mg PO DAILY 01/17/20 01/18/20 History Empagliflozin [Jardiance] 25 mg PO DAILY 01/17/20 01/18/20 History Insulin Lispro [humaLOG Kwikpen] 15 unit SQ W/SUPPER 01/17/20 01/18/20 History Lisinopril 20 mg PO DAILY 01/17/20 01/18/20 History Magnesium Oxide 400 mg PO DAILY 01/17/20 01/18/20 History Midodrine [ProAmatine] 5 mg PO TID 01/17/20 01/18/20 History Pioglitazone [Actos] 30 mg PO DAILY 01/17/20 01/18/20 History Sertraline HCl [Zoloft] 200 mg PO HS 01/17/20 01/18/20 History metFORMIN HCL 1,000 mg PO BID 01/17/20 01/18/20 History traZODone HCL [Desyrel] 50 mg PO HS 01/17/20 01/18/20 History Allergies Allergy/AdvReac Type Severity Reaction Status Date / Time No Known Allergies Allergy Verified 01/17/20 21:27 Physical Exam Vitals: Vital Signs Temp Pulse Pulse Resp BP BP Pulse Ox 01/18/20 03:57 97.5 F L 65 18 141/76 98 01/18/20 00:44 98.1 F 67 18 127/75 98 01/17/20 22:05 98.7 F 73 18 136/93 98 01/17/20 20:18 98.4 F 89 18 146/90 98 Intake and Output 01/17/20 01/18/20 01/18/20 22:59 06:59 14:59 Other: Voiding Method Toilet Diaper Incontinent Weight 88.904 kg Results 01/17/20 20:58 01/17/20 20:58 Cardiac Enzymes 01/17/20 01/17/20 01/18/20 Range/Units 20:58 21:05 02:43 AST 29 (17-59) U/L Troponin I <0.012 <0.012 (0.000-0.034) ng/mL Coagulation 06/23/20 Range/Units 21:05 PT 9.7 (9.0-12.0) sec APTT 21.5 L (22.0-30.0) sec CBC 01/17/20 Range/Units 20:58 WBC 5.9 (3.8-10.6) k/uL RBC 4.37 (4.30-5.90) m/uL Hgb 13.8 (13.0-17.5) gm/dL Hct 40.2 (39.0-53.0) % Plt Count 140 L (150-450) k/uL Comprehensive Metabolic Panel 01/17/20 Range/Units 20:58 Sodium 134 L (137-145) mmol/L Potassium 3.4 L (3.5-5.1) mmol/L Chloride 104 (98-107) mmol/L Carbon Dioxide 24 (22-30) mmol/L BUN 11 (9-20) mg/dL Creatinine 0.52 L (0.66-1.25) mg/dL Glucose 289 H (74-99) mg/dL Calcium 8.2 L (8.4-10.2) mg/dL AST 29 (17-59) U/L ALT 26 (4-49) U/L Alkaline Phosphatase 158 H (38-126) U/L Total Protein 6.3 (6.3-8.2) g/dL Albumin 3.3 L (3.5-5.0) g/dL Current Medications Generic Name Dose Route Start Last Admin Trade Name Freq PRN Reason Stop Dose Admin Acetaminophen 500 mg 01/17/20 23:17 Tylenol Tab PO Q6HR PRN Fever and/ or Pain Hydrocodone Bitart/Acetaminophen 1 each 01/17/20 23:17 [place]ie 5-325 PO Q6HR PRN Pain Alprazolam 0.25 mg 01/17/20 23:17 Xanax PO TID PRN Anxiety Aspirin 81 mg 01/18/20 09:00 01/18/20 08:12 Aspirin PO 81 mg DAILY JOEY Administration Heparin Sodium (Porcine) 5,000 unit 01/18/20 09:00 01/18/20 08:12 Heparin SQ 5,000 unit Q12HR JOEY Administration Hydromorphone HCl 0.5 mg 01/17/20 23:17 Dilaudid IVP Q6HR PRN Severe Pain Insulin Aspart 15 unit 01/18/20 17:30 Novolog SQ W/SUPPER JOEY Insulin Aspart 12 unit 01/17/20 23:45 01/18/20 01:08 Novolog SQ 12 unit BID-W/MEALS JOEY Administration Insulin Aspart 0 unit 01/18/20 07:30 Novolog SQ ACHS [facility] Protocol Insulin Detemir 60 unit 01/18/20 09:00 Levemir SQ DAILY [facility] Lisinopril 20 mg 01/18/20 09:00 01/18/20 08:12 Zestril PO 20 mg DAILY JOEY Administration Magnesium Oxide 400 mg 01/18/20 09:00 01/18/20 08:12 Mag-Ox PO 400 mg DAILY [facility] Administration Metformin HCl 1,000 mg 01/18/20 09:00 Glucophage PO BID [facility] Metoprolol Succinate 25 mg 01/18/20 09:00 Toprol Xl PO DAILY [facility] Midodrine 5 mg 01/18/20 09:00 01/18/20 08:14 Proamatine PO 5 mg TID [facility] Administration Naloxone HCl 0.2 mg 01/17/20 22:39 Narcan IV Q2M PRN Opioid Reversal Non-Formulary Medication 25 mg 01/18/20 09:00 01/18/20 08:07 Empagliflozin [Jardiance] PO Not Given DAILY [facility] Pantoprazole Sodium 40 mg 01/18/20 07:30 01/18/20 08:12 Protonix PO 40 mg AC-BRKFST [facility] Administration Pioglitazone HCl 30 mg 01/18/20 09:00 Actos PO DAILY [facility] Sertraline HCl 200 mg 01/18/20 21:00 Zoloft PO HS JOEY Trazodone HCl 50 mg 01/18/20 21:00 Desyrel PO HS [facility] Intake and Output 01/17/20 01/18/20 01/18/20 22:59 06:59 14:59 Other: Voiding Method Toilet Diaper Incontinent Weight 88.904 kg 01/17/20 20:58 01/17/20 20:58
[2020-01-18 10:21] LABS: African American GFR (CKD) >90 (>60 ml/min/1.73 sqM); Anion Gap 6 mmol/L; Blood Urea Nitrogen 11 mg/dL (9-20); Calcium 8.2 mg/dL (8.4-10.2); Carbon Dioxide 25 mmol/L (22-30); Chloride 105 mmol/L (98-107); Glucose 299 mg/dL (74-99); Magnesium 1.8 mg/dL (1.6-2.3); Non-African American GFR(CKD) >90 (>60 ml/min/1.73 sqM); Potassium 3.6 mmol/L (3.5-5.1); Sodium 136 mmol/L (137-145)
[2020-01-18 10:30] LABS: Basophils % (A) 1 %; Eosinophils # (A) 0.2 k/uL (0-0.7); Eosinophils % (A) 3 %; HCT 43.7 % (39.0-53.0); HGB 14.1 gm/dL (13.0-17.5); Lymphocytes # (A) 2.5 k/uL (1.0-4.8); Lymphocytes % (A) 41 %; MCH 30.8 pg (25.0-35.0); MCHC 32.3 g/dL (31.0-37.0); MCV 95.2 fL (80.0-100.0); Mean Platelet Volume 9.6; Monocytes # (A) 0.4 k/uL (0-1.0); Monocytes % (A) 7 %; Neutrophils # (A) 2.8 k/uL (1.3-7.7); Neutrophils % (A) 47 %; Platelet Count 139 k/uL (150-450); RBC 4.59 m/uL (4.30-5.90); RDW 13.2 % (11.5-15.5)
[2020-01-18 11:05] LABS: Glucose,Whole Blood 306 mg/dL (75-99)
[2020-01-18] MEDS: metFORMIN 500 MG TAB PO SCH ×2 (11:15→21:32)
[2020-01-18] MEDS: PIOGLITAZONE 30 MG TAB PO SCH (11:15)
[2020-01-18] MEDS: METOPROLOL SUCCINATE (ER) 25 MG TAB.ER.24H PO SCH (11:15)
[2020-01-18 15:07] VITALS: BMI 31.6
[2020-01-18 16:43] LABS: Glucose,Whole Blood 256 mg/dL (75-99)
--- NOTE | 2020-01-18 19:40 | PN ---
PROGRESS NOTE DATE OF SERVICE: 01/18/2020 This 54-year-old gentleman admitted with uncontrolled diabetes mellitus and hyperglycemia is being closely monitored. No chest pain. No palpitations. No fever. Cardiology is following the patient also with a stress test for complaints of chest pain. The patient is being closely monitored. No fever. No cough. PHYSICAL EXAMINATION: Alert and oriented x3. Pulse is 62, blood pressure 111/62, respiration 18, temperature 97.8, pulse ox 99% on room air. HEENT: Conjunctivae normal. NECK: No jugular venous distention. CARDIOVASCULAR SYSTEM: S1, S2 muffled. RESPIRATORY SYSTEM: Breath sounds diminished at the bases. No rhonchi. No crackles. ABDOMEN: Soft, non-tender. LEGS: No edema. No swelling. NERVOUS SYSTEM: No focal deficit. LABS: Platelets 139. Sodium 136, potassium 3.6, glucose 299. ASSESSMENT: 1. Diabetes mellitus, type 2, uncontrolled, with hyperosmolar diabetic state. 2. Chest pain. Rule out coronary artery disease. 3. Hyponatremia. 4. Hypokalemia. 5. Mild thrombocytopenia. 6. Hemoglobin A1c of 17. 7. Chronic obstructive pulmonary disease. 8. Diabetes mellitus, type 2. 9. Gastroesophageal reflux disease. 10.Hypertension. 11.History of pacemaker. 12.FULL CODE. RECOMMENDATIONS AND DISCUSSION: I recommend to continue current medications, continue with the monitoring, symptomatic treatment. I recommend increasing the dose of insulin, possibly splitting to twice daily. Continue to monitor. The prognosis is guarded because of the multiple complex medical issues. Further recommendations to follow. MMODL / IJN: [id number] /
[2020-01-18 19:55] LABS: Glucose,Whole Blood 175 mg/dL (75-99)
[2020-01-18] MEDS: INSULIN DETEMIR (LEVEMIR) 100 UNIT/ML SYR SQ SCH (21:33)
[2020-01-18] MEDS: traZODone HCL 100 MG TAB PO SCH (21:33)
[2020-01-18] MEDS: SERTRALINE 100 MG TAB PO SCH (21:45)
[2020-01-19] MEDS: MIDODRINE 5 MG TAB PO SCH ×4 (00:18→21:53)
[2020-01-19 06:47] LABS: Glucose,Whole Blood 83 mg/dL (75-99)
[2020-01-19] MEDS: NON FORMULARY DRUG (Empagliflozin [Jardiance] 25 MG) PO SCH (07:14)
[2020-01-19] MEDS: INSULIN ASPART (NovoLOG) 100 UNIT/ML VIAL SQ SCH ×7 (07:14→21:53)
[2020-01-19] MEDS: ACETAMINOPHEN TAB 500 MG TAB PO PRN (07:42)
--- NOTE | 2020-01-19 07:54 | ECHOF ---
Referral Reason: MEASUREMENTS -------- HEIGHT: 167.6 cm WEIGHT: 88.9 kg BP: 141/76 RVIDd: 3.4 cm (< 3.3) IVSd: 1.2 cm (0.6 - 1.1) LVIDd: 3.9 cm (3.9 - 5.3) LVPWd: 1.2 cm (0.6 - 1.1) IVSs: 1.8 cm LVIDs: 2.6 cm LVPWs: 1.8 cm LA Diam: 3.4 cm (2.7 - 3.8) LAESV Index (A-L): 20.35 ml/m Ao Diam: 3.2 cm (2.0 - 3.7) AV Cusp: 2.1 cm (1.5 - 2.6) MV EXCURSION: 17.614 mm (> 18.000) MV EF SLOPE: 115 mm/s (70 - 150) EPSS: 0.3 cm MV E Hansel: 0.67 m/s MV DecT: 254 ms MV A Hansel: 0.74 m/s MV E/A Ratio: 0.91 RAP: 5.00 mmHg RVSP: 26.84 mmHg FINDINGS -------- Paced rhythm. This was a technically good study. The left ventricular size is normal. There is borderline concentric left ventricular hypertrophy. Overall left ventricular systolic function is normal with, an EF between 60 - 65 %. The right ventricle is mildly enlarged. Normal LA size by volume 22+/-6 ml/m2. The right atrium is normal in size. Aneurysmal Interatrial septum. The aortic valve is trileaflet and appears structurally normal. The mitral valve is normal. Mild tricuspid regurgitation present. Right ventricular systolic pressure is normal at < 35 mmHg. There is no pulmonic regurgitation present. The aortic root size is normal. Normal inferior vena cava with normal inspiratory collapse consistent with estimated right atrial pre ssure of 5 mmHg. There is no pericardial effusion. CONCLUSIONS -------- 1. Paced rhythm. 2. This was a technically good study. 3. The left ventricular size is normal. 4. There is borderline concentric left ventricular hypertrophy. 5. Overall left ventricular systolic function is normal with, an EF between 60 - 65 %. 6. The right ventricle is mildly enlarged. 7. Normal LA size by volume 22+/-6 ml/m2. 8. The right atrium is normal in size. 9. Aneurysmal Interatrial septum. 10. The aortic valve is trileaflet and appears structurally normal. 11. The mitral valve is normal. 12. Mild tricuspid regurgitation present. 13. Right ventricular systolic pressure is normal at < 35 mmHg. 14. There is no pulmonic regurgitation present. 15. The aortic root size is normal. 16. Normal inferior vena cava with normal inspiratory collapse consistent with estimated right atrial pressure of 5 mmHg. 17. There is no pericardial effusion. JAMB CUTTER: Madeleine Dominguez RDCS
[2020-01-19] MEDS: lisinopriL 20 MG TAB PO SCH (09:10)
[2020-01-19] MEDS: HEPARIN SODIUM,PORCINE 5,000 UNIT/ML 1 ML VIAL SQ SCH ×2 (09:10→21:51)
[2020-01-19] MEDS: PANTOPRAZOLE 40 MG TABLET PO SCH (09:10)
[2020-01-19] MEDS: METOPROLOL SUCCINATE (ER) 25 MG TAB.ER.24H PO SCH (09:10)
[2020-01-19] MEDS: ASPIRIN 81 MG PO SCH (09:10)
[2020-01-19] MEDS: PIOGLITAZONE 30 MG TAB PO SCH (09:10)
[2020-01-19] MEDS: metFORMIN 500 MG TAB PO SCH ×2 (09:10→21:51)
[2020-01-19] MEDS: MAGNESIUM OXIDE 400 MG TAB PO SCH (09:11)
[2020-01-19 11:33] LABS: Glucose,Whole Blood 146 mg/dL (75-99)
[2020-01-19 16:42] LABS: Glucose,Whole Blood 280 mg/dL (75-99)
[2020-01-19] MEDS: INSULIN DETEMIR (LEVEMIR) 100 UNIT/ML SYR SQ SCH ×2 (19:31→21:52)
--- NOTE | 2020-01-19 20:25 | PN ---
PROGRESS NOTE DATE OF SERVICE: 01/19/2020 This 54-year-old gentleman who was admitted with diabetes mellitus, type 2, also had chest pain. The patient is being closely monitored at this time. Cardiology is following the patient closely. A 2D echo with Doppler was done which showed ejection fraction 60% to 65%. PHYSICAL EXAMINATION: Alert, oriented x3. Pulse is 84, blood pressure 121/79, respiration 14, temperature 97.9, pulse ox 96% on room. HEENT: Conjunctivae normal. NECK: No jugular venous distention. CARDIOVASCULAR SYSTEM: S1, S2 muffled. RESPIRATORY SYSTEM: Breath sounds diminished at the bases. No rhonchi. No crackles. ABDOMEN: Soft, non-tender. LEGS: No edema. No swelling. NERVOUS SYSTEM: No focal deficit. LABS: Accu-Cheks are 83, 146. ASSESSMENT: 1. Diabetes mellitus, type 2, uncontrolled, with hyperosmolar diabetic state. 2. No evidence of ketoacidosis. 3. Chest pain. Rule out coronary artery disease. 4. Hyponatremia. 5. Hypokalemia. 6. Mild thrombocytopenia. 7. Hemoglobin A1c of 17. 8. Chronic obstructive pulmonary disease. 9. Diabetes mellitus, type 2. 10.Gastroesophageal reflux disease. 11.Hypertension. 12.History of pacemaker. 13.FULL CODE. RECOMMENDATIONS AND DISCUSSION: I recommend to continue current medications, continue with the monitoring, symptomatic treatment. I would recommend splitting the dose of Lantus at 35 units subcutaneously b.i.d. and Accu-Cheks . Continue to monitor. Guarded prognosis. Further recommendations to follow. MMODL / IJN: [id number] / BIBI
[2020-01-19 20:59] LABS: Glucose,Whole Blood 166 mg/dL (75-99)
[2020-01-19] MEDS: traZODone HCL 100 MG TAB PO SCH (21:52)
[2020-01-19] MEDS: SERTRALINE 100 MG TAB PO SCH (21:53)
[2020-01-20 06:51] LABS: Glucose,Whole Blood 155 mg/dL (75-99)
[2020-01-20 07:30] VITALS: BP 116/64; PULSE 87; RESP 12; TEMP 98.1
[2020-01-20] MEDS: MAGNESIUM OXIDE 400 MG TAB PO SCH (07:30)
[2020-01-20] MEDS: metFORMIN 500 MG TAB PO SCH (07:30)
[2020-01-20] MEDS: ASPIRIN 81 MG PO SCH (07:30)
[2020-01-20] MEDS: PIOGLITAZONE 30 MG TAB PO SCH (07:30)
[2020-01-20] MEDS: HEPARIN SODIUM,PORCINE 5,000 UNIT/ML 1 ML VIAL SQ SCH (07:30)
[2020-01-20] MEDS: PANTOPRAZOLE 40 MG TABLET PO SCH (07:30)
[2020-01-20] MEDS: METOPROLOL SUCCINATE (ER) 25 MG TAB.ER.24H PO SCH (07:31)
[2020-01-20] MEDS: INSULIN DETEMIR (LEVEMIR) 100 UNIT/ML SYR SQ SCH (07:31)
[2020-01-20] MEDS: MIDODRINE 5 MG TAB PO SCH (07:31)
[2020-01-20] MEDS: lisinopriL 20 MG TAB PO SCH (07:31)
[2020-01-20] MEDS: INSULIN ASPART (NovoLOG) 100 UNIT/ML VIAL SQ SCH ×3 (07:32→11:53)
[2020-01-20] MEDS: NON FORMULARY DRUG (Empagliflozin [Jardiance] 25 MG) PO SCH (07:32)
[2020-01-20 11:40] LABS: Glucose,Whole Blood 89 mg/dL (75-99)
--- NOTE | 2020-01-21 08:32 | DS ---
DISCHARGE SUMMARY FINAL DIAGNOSES: 1. Diabetes type 2 uncontrolled with hyperosmolar diabetic state. 2. No evidence of ketoacidosis. 3. Chest pain, myocardial infarction ruled out. 4. Hyponatremia. 5. Hypokalemia. 6. Mild thrombocytopenia. 7. Hemoglobin A1c 17. 8. Chronic obstructive pulmonary disease. 9. History of gastroesophageal reflux disease. 10.Hypertension. 11.History of pacemaker. 12.FULL CODE. HISTORY OF PRESENT ILLNESS: This 54-year-old gentleman with a past medical history of multiple medical problems admitted with uncontrolled diabetes mellitus, blood sugars more than 500, treated and change in dose of insulin, improved significantly. Sugars are between 155 and 89. On exam, vitals are stable. Cardiovascular S1, S2. Abdomen soft. Nervous system: No focal deficits. Discharge diet is consistent carb. Follow up with Dr. Pedro Pablo Yee in 1-2 days. DISCHARGE MEDICATIONS: 1. Aspirin 81 mg p.o. daily. 2. Desyrel 50 mg q.h.s. 3. Jardiance 25 mg p.o. daily. 4. Lipitor 20 mg p.o. 5. Lisinopril 20 mg daily. 6. Magnesium oxide 400 mg daily. 7. Metformin 1000 mg p.o. b.i.d. 8. Midodrine 5 mg p.o. t.i.d. 9. Toprol-XL 25 mg. 10.Zoloft 200 mg q.h.s. 11.Ceftin 500 mg p.o. b.i.d. for 5 days. 12.Lantus 35 units subcu q.h.s. 13.Tylenol p.r.n. 14.Accu-Cheks a.c. and at bedtime. Results to Dr. Yee. DISCHARGE DISPOSITION: The patient will be discharged in stable condition with guarded prognosis. MMODL / IJN: [id number] /
--- NOTE | 2020-01-23 09:59 | EST ---
EXERCISE STRESS AGE: SEX: M HT: 66 WT: 196 PROTOCOL: Dobutamine STAGE: DURATION OF EXERCISE: HEART RATE REST: 62 BLOOD PRESSURE REST: 109/59 MAXIMUM HEART RATE ACHIEVED: 139 MAXIMUM BLOOD PRESSURE: 154/75 85% MPHR: 139 100% MPHR: 164 METS: INDICATIONS: Atypical chest pain. CLINICAL INFORMATION: STRESS DATA: Heart rate 62, pressure is 109/59 mmHg. Baseline EKG showed atrial paced rhythm. The patient dobutamine infusion at a dose of 10 mcg/kg per minute was initiated and increased to 40 mcg/kg per minute per protocol. Max heart rate was 139 beats per minute which is about 85% of maximum predicted heart rate. Maximum blood pressure was 154/75 mmHg. Clinically the patient did not have no symptoms of chest pain or chest discomfort during the testing or on recovery and the EKG did not show any significant ST or T-wave abnormalities concerning for ischemia. Please note that by the end, the patient did have ventricular paced rhythm. ECHOCARDIOGRAM IMAGES: On echocardiogram images from parasternal long axis view, parasternal short axis view, apical 4 chambers and apical 2 chamber view were obtained as baseline images, at low dose dobutamine infusion, at peak heart rate as well as on recovery. The echocardiogram images did not show any evidence of wall motion abnormalities concerning for ischemia. CONCLUSION: 1. Normal EKG in response to dobutamine. 2. Normal echocardiogram in response to dobutamine. 3. Overall essentially normal dobutamine stress echocardiogram for the patient. MMODL / IJN: [id number] /
== END 2020-01-20 13:20 | disposition home or self-care (01) ==
LOC: EC 20:16 → 1SOBS 22:39 → OBSVTOIN 01-20 08:05 → INTOOBSV 01-20 08:05 → UNDODISIN 01-20 13:20
PROVIDERS: ADMIT Hospitalist; ATTEND Hospitalist
DX: E11.00 Type 2 diabetes mellitus with hyperosmolarity without nonketotic hyperglycemic-hyperosmolar coma (NKHHC) (principal); E87.1 Hypo-osmolality and hyponatremia; E11.65 Type 2 diabetes mellitus with hyperglycemia; R07.9 Chest pain, unspecified; D69.6 Thrombocytopenia, unspecified; E78.5 Hyperlipidemia, unspecified; E83.42 Hypomagnesemia; E87.6 Hypokalemia; I10 Essential (primary) hypertension; J44.9 Chronic obstructive pulmonary disease, unspecified; K21.9 Gastro-esophageal reflux disease without esophagitis; Z79.4 Long term (current) use of insulin; Z79.82 Long term (current) use of aspirin; Z79.899 Other long term (current) drug therapy; Z82.49 Family history of ischemic heart disease and other diseases of the circulatory system; Z83.3 Family history of diabetes mellitus; Z95.0 Presence of cardiac pacemaker; Z03.818 Encounter for observation for suspected exposure to other biological agents ruled out
CPT/HCPCS: 96372 ×3; 96365; 99285; 36415; 93005 ×2; 93306; 93351; 80053; 80048; 82803; 83605; 83690; 83735 ×2; 84484 ×2; 85025 ×2; 85610; 85730; 81003; 71046; G0378 ×4; U0003; J1250; J1644 ×3; J3475

== ENCOUNTER 2023-01-14 07:19 | Day surgery (SDC) | payer MEDICARE ==
[~2023-01-14 07:19] MED LIST: LACTATED RINGERS 1,000 ML IV SCH
[2023-01-14 08:24] VITALS: BP 148/106; RESP 16; TEMP 98.2
[2023-01-14 08:30] LABS: Glucose,Whole Blood 349 mg/dL (70-110)
[2023-01-14 08:32] VITALS: PULSE 109
[2023-01-14 08:42] LABS: Glucose,Whole Blood 360 mg/dL (70-110)
--- NOTE | 2023-01-14 08:55 | P.PN ---
Progress Note - Text Progress Note Date: 01/14/23 Procedure canceled. Patient redirected to the emergency room for admission due to symptoms of hyperglycemia, uncontrolled hypertension, intractable nausea and vomiting.
--- NOTE | 2023-01-14 08:55 | P.GSHP ---
History of Present Illness H&P Date: 01/14/23 CHIEF COMPLAINT: GERD HISTORY OF PRESENT ILLNESS: The patient is a 57-year-old male who presents with intractable nausea and vomiting. He reports multiple admissions to the emergency room. He is accompanied by his elderly parents. Symptoms have been ongoing for over 6-9 months. Patient presents for upper endoscopy for assessment. Patient also reports unintentional weight loss over 30 pounds for discussion with parents. PAST MEDICAL HISTORY: Please see list. PAST SURGICAL HISTORY: Please see list. MEDICATIONS: Please see list. ALLERGIES: Please see list. SOCIAL HISTORY: Has been incarcerated. FAMILY HISTORY: No reports of Crohn disease or ulcerative colitis. REVIEW OF ORGAN SYSTEMS: CONSTITUTIONAL: No reports of fevers or chills. GI: Reports intractable nausea and vomiting. PHYSICAL EXAM: VITAL SIGNS: Stable GENERAL: Well-developed and pleasant in no acute distress. HEENT: No scleral icterus. Extraocular movements grossly intact. Moist buccal mucosa. NECK: Supple without lymphadenopathy. CHEST: Unlabored respirations. Equal bilateral excursions. CARDIOVASCULAR: Regular rate and rhythm. Distal 2+ pulses. ABDOMEN: Soft, nondistended. MUSCULOSKELETAL: No clubbing, cyanosis, or edema. ASSESSMENT: 1. Gastroesophageal reflux disease 2. Intractable nausea and vomiting 3. Unintentional weight loss PLAN: 1. During further assessment with anesthesia, his blood sugars over 350s including blood pressure 150s over 110s. As a result, procedure canceled. Despite pharmacological intervention, he still has persistent hyperglycemia and hypertension. 2. Recommend urgent assessment in the emergency room admission due to symptoms Past Medical History Past Medical History: COPD, Diabetes Mellitus, GERD/Reflux, Hyperlipidemia, Hypertension Additional Past Medical History / Comment(s): pacemaker,prolapsed rectum, wound care on hand lft currently History of Any Multi-Drug Resistant Organisms: None Reported Past Surgical History: Unable to Obtain, Pacemaker Additional Past Surgical History / Comment(s): pacemaker implanted 2018. Past Anesthesia/Blood Transfusion Reactions: No Reported Reaction Type of Cardiac Device: Permanent Pacemaker Device Placement Date:: 2017 Smoking Status: Former smoker - Past Family History Father Additional Family Medical History / Comment(s): pacer Mother Family Medical History: Diabetes Mellitus Additional Family Medical History / Comment(s): pacer Brother(s) Family Medical History: Coronary Artery Disease (CAD), Diabetes Mellitus Additional Family Medical History / Comment(s): pacer Sister(s) Additional Family Medical History / Comment(s): "hole in heart" Medications and Allergies Home Medications Medication Instructions Recorded Confirmed Type Aspirin [Adult Low Dose Aspirin EC] 81 mg PO DAILY 12/24/17 01/14/23 History Metoprolol Succinate (ER) [Toprol 25 mg PO DAILY 12/24/17 01/14/23 History XL] Atorvastatin [Lipitor] 20 mg PO DAILY 01/17/20 01/14/23 History Empagliflozin [Jardiance] 25 mg PO DAILY 01/17/20 01/14/23 History Magnesium Oxide 400 mg PO DAILY 01/17/20 01/14/23 History Midodrine [ProAmatine] 5 mg PO TID 01/17/20 01/14/23 History Sertraline HCl [Zoloft] 200 mg PO HS 01/17/20 01/14/23 History lisinopriL 20 mg PO DAILY 01/17/20 01/14/23 History metFORMIN HCL [Glucophage] 1,000 mg PO BID 01/17/20 01/14/23 History traZODone HCL [Desyrel] 50 mg PO HS 01/17/20 01/14/23 History Acetaminophen Tab [Tylenol] 500 mg PO Q6HR PRN #40 tab 01/20/20 01/14/23 Rx Insulin Glargine,Hum.rec.anlog 35 unit SQ HS 30 Days #2 pen 01/20/20 01/14/23 Rx [Lantus Solostar Pen] cefUROXime axetiL [Ceftin] 500 mg PO BID 5 Days #10 tab 01/20/20 01/14/23 Rx Allergies Allergy/AdvReac Type Severity Reaction Status Date / Time dulaglutide [From [facility]] Allergy Unknown Verified 01/14/23 08:26 Surgical - Exam Vital Signs Temp Pulse Resp BP Pulse Ox 98.2 F 120 H 16 148/106 96 01/14/23 08:05 01/14/23 08:05 01/14/23 08:05 01/14/23 08:05 01/14/23 08:05 Results - Labs Abnormal Lab Results - Last 24 Hours (Table) 01/14/23 01/14/23 Range/Units 08:22 08:40 POC Glucose (mg/dL) 349 H 360 H (70-110) mg/dL
== END 2023-01-14 08:59 | disposition other institution (70) ==
LOC: ORWHC2ENDO 07:19
PROVIDERS: ATTEND Surgery Plastic and Reconstructive Surgery
DX: Z53.8 Procedure and treatment not carried out for other reasons (principal); K44.9 Diaphragmatic hernia without obstruction or gangrene

== ENCOUNTER 2023-01-14 09:02 | Observation (INO) | payer MEDICARE, OTHER ==
[2023-01-14] MEDS ORDERED: SODIUM CHLORIDE 0.9% 1,000 ML IV STA (09:35)
--- NOTE | 2023-01-14 09:39 | ED ---
General Adult HPI - General Chief complaint: Recheck/Abnormal Lab/Rx Stated complaint: sent from preop Time Seen by Provider: 01/14/23 09:27 Source: patient, RN notes reviewed Mode of arrival: wheelchair Limitations: no limitations - History of Present Illness Initial comments: Patient is a pleasant 57-year-old male presenting to the emergency department with concern for hypertension hyperglycemia. Patient was at rehab for EGD. Patient was found to have blood pressure 1 5110 as well as blood sugar 360. Patient admits to feeling somewhat dry however states he has not eaten or drink today. Patient states he may have taken some of his blood pressure medicine however. Otherwise patient has no complaints. Patient requests have scope for hiatal hernia. - Related Data Home Medications Medication Instructions Recorded Confirmed Aspirin [Adult Low Dose Aspirin EC] 81 mg PO DAILY 12/24/17 01/14/23 Metoprolol Succinate (ER) [Toprol 25 mg PO DAILY 12/24/17 01/14/23 XL] Atorvastatin [Lipitor] 20 mg PO DAILY 01/17/20 01/14/23 Empagliflozin [Jardiance] 25 mg PO DAILY 01/17/20 01/14/23 Magnesium Oxide 400 mg PO DAILY 01/17/20 01/14/23 Midodrine [ProAmatine] 5 mg PO TID 01/17/20 01/14/23 Sertraline HCl [Zoloft] 200 mg PO HS 01/17/20 01/14/23 lisinopriL 20 mg PO DAILY 01/17/20 01/14/23 metFORMIN HCL [Glucophage] 1,000 mg PO BID 01/17/20 01/14/23 traZODone HCL [Desyrel] 50 mg PO HS 01/17/20 01/14/23 Previous Rx's Medication Instructions Recorded Acetaminophen Tab [Tylenol] 500 mg PO Q6HR PRN #40 tab 01/20/20 Insulin Glargine,Hum.rec.anlog 35 unit SQ HS 30 Days #2 pen 01/20/20 [Lantus Solostar Pen] cefUROXime axetiL [Ceftin] 500 mg PO BID 5 Days #10 tab 01/20/20 Allergies Allergy/AdvReac Type Severity Reaction Status Date / Time dulaglutide [From [facility]] Allergy Unknown Verified 01/14/23 08:26 Review of Systems ROS Statement: Those systems with pertinent positive or pertinent negative responses have been documented in the HPI. ROS Other: All systems not noted in ROS Statement are negative. Constitutional: Denies: fever Eyes: Denies: eye pain ENT: Denies: ear pain Respiratory: Denies: cough, dyspnea Cardiovascular: Denies: chest pain Endocrine: Denies: fatigue Gastrointestinal: Reports: as per HPI Genitourinary: Denies: dysuria Past Medical History Past Medical History: COPD, Diabetes Mellitus, GERD/Reflux, Hyperlipidemia, Hypertension Additional Past Medical History / Comment(s): pacemaker,prolapsed rectum, wound care on hand lft currently History of Any Multi-Drug Resistant Organisms: None Reported Past Surgical History: Unable to Obtain, Pacemaker Additional Past Surgical History / Comment(s): pacemaker implanted 2017. Past Anesthesia/Blood Transfusion Reactions: No Reported Reaction Type of Cardiac Device: Permanent Pacemaker Device Placement Date:: 2017 Past Psychological History: No Psychological Hx Reported Smoking Status: Former smoker - Past Family History Father Additional Family Medical History / Comment(s): pacer Mother Family Medical History: Diabetes Mellitus Additional Family Medical History / Comment(s): pacer Brother(s) Family Medical History: Coronary Artery Disease (CAD), Diabetes Mellitus Additional Family Medical History / Comment(s): pacer Sister(s) Additional Family Medical History / Comment(s): "hole in heart" General Exam Limitations: no limitations General appearance: alert, in no apparent distress Head exam: Present: normocephalic Eye exam: Present: normal appearance, PERRL ENT exam: Present: mucous membranes dry Neck exam: Present: normal inspection Respiratory exam: Present: normal lung sounds bilaterally Cardiovascular Exam: Present: regular rate, normal rhythm GI/Abdominal exam: Present: soft. Absent: distended, tenderness Extremities exam: Present: normal inspection Neurological exam: Present: alert Psychiatric exam: Present: normal affect, normal mood Skin exam: Present: normal color Course Vital Signs 01/14/23 01/14/23 09:10 11:07 Temperature 98.7 F Pulse Rate 116 H Respiratory 20 Rate Blood Pressure 145/85 169/112 O2 Sat by Pulse 98 Oximetry EKG Findings - EKG Results: EKG: interpreted by ERMD, sinus rhythm, normal axis, normal QRS, normal ST/T Medical Decision Making - Medical Decision Making Was pt. sent in by a medical professional or institution (ANNE-MARIE Rosen, FLOOR ASSOCIATE, urgent care, hospital, or intermediate...) When possible be specific @ -Patient was sent from endoscopy Did you speak to anyone other than the patient for history (EMS, parent, family, police, friend...)? What history was obtained from this source @ -Did speak with Dr. Alva who helps provide history as far as weighs patient is sent here including hypertension and hyperglycemia Did you review nursing and triage notes (agree or disagree)? Why? @ -I reviewed and agree with nursing and triage notes Were old charts reviewed (outside hosp., previous admission, EMS record, old EKG, old radiological studies, urgent care reports/EKG's, intermediate records)? Report findings @ -No old charts were reviewed Differential Diagnosis (chest pain, altered mental status, abdominal pain women, abdominal pain men, vaginal bleeding, weakness, fever, dyspnea, syncope, headache, dizziness, GI bleed, back pain, seizure, CVA, palpatations, mental health)? @ -Differential Abdominal Pain Men: Appendicitis, cholecystitis, diverticulosis, ischemic bowel, pancreatitis, hepatitis, UTI, gastroenteritis, AAA, incarcerated hernia, bowel obstruction, constipation, inflammatory bowel, hepatitis, peptic ulcer disease, splenic infarction, perforated viscus, testicular torsion, this is not meant to be an all-inclusive list EKG interpreted by me (3pts min.). @ -As above X-rays interpreted by me (1pt min.). @ -Chest x-ray does not reveal acute process. Postoperative changes. CT interpreted by me (1pt min.). @ -None done U/S interpreted by me (1pt. min.). @ -None done What testing was considered but not performed or refused? (CT, X-rays, U/S, labs)? Why? @ -None What meds were considered but not given or refused? Why? @ -None Did you discuss the management of the patient with other professionals (professionals i.e. ANNE-MARIE Rosen, FLOOR ASSOCIATE, lab, RT, psych nurse, social organization professor, automatic lehr operator, teacher, hospital security officer, case management rn)? Give summary @ -Case previously discussed with Dr. Coronel. Case also discussed with Dr. Souza, who will admit covering hospital call. Was smoking cessation discussed for >3mins.? @ -No Was critical care preformed (if so, how long)? @ -No Were there social determinants of health that impacted care today? How? (Homelessness, low income, unemployed, alcoholism, drug addiction, transportation, low edu. Level, literacy, decrease access to med. care, fdc, rehab)? @ -No Was there de-escalation of care discussed even if they declined (Discuss DNR or withdrawal of care, Hospice)? DNR status @ -No What co-morbidities impacted this encounter? (DM, HTN, Smoking, COPD, CAD, Cancer, CVA, ARF, Chemo, Hep., AIDS, mental health diagnosis, sleep apnea, morbid obesity)? @ -None Was patient admitted / discharged? Hospital course, mention meds given and route, prescriptions, significant lab abnormalities, going to OR and other pertinent info. @ -Repeat blood pressure is elevated. Patient will be provided medication. Blood sugar is also elevated and will be provided medication for this as well. Patient will be admitted for stabilization and probable endoscopy tomorrow Undiagnosed new problem with uncertain prognosis? @ -No Drug Therapy requiring intensive monitoring for toxicity (Heparin, Nitro, Insulin, Cardizem)? @ -No Were any procedures done? @ -No Diagnosis/symptom? @ -Hyperglycemia, hypertension Acute, or Chronic, or Acute on Chronic? @ -Acute on chronic, acute on chronic Uncomplicated (without systemic symptoms) or Complicated (systemic symptoms)? @ -default Side effects of treatment? @ -No Exacerbation, Progression, or Severe Exacerbation? @ -No Poses a threat to life or bodily function? How? (Chest pain, [place], [place], pneumonia, PE, COPD, DKA, ARF, appy, cholecystitis, CVA, Diverticulitis, Homicidal, Suicidal, threat to staff... and all critical care pts) @ -No - Lab Data Result diagrams: 01/14/23 09:52 01/14/23 09:52 Lab Results 01/14/23 01/14/23 01/14/23 Range/Units 09:52 09:52 09:52 WBC 8.5 (3.8-10.6) k/uL RBC 4.88 (4.30-5.90) m/uL Hgb 15.6 (13.0-17.5) gm/dL Hct 46.0 (39.0-53.0) % MCV 94.2 (80.0-100.0) fL MCH 32.0 (25.0-35.0) pg MCHC 34.0 (31.0-37.0) g/dL RDW 12.8 (11.5-15.5) % Plt Count 181 (150-450) k/uL MPV 8.3 Neutrophils % 77 % Lymphocytes % 17 % Monocytes % 5 % Eosinophils % 1 % Basophils % 0 % Neutrophils # 6.5 (1.3-7.7) k/uL Lymphocytes # 1.4 (1.0-4.8) k/uL Monocytes # 0.4 (0-1.0) k/uL Eosinophils # 0.1 (0-0.7) k/uL Basophils # 0.0 (0-0.2) k/uL PT 10.3 (9.0-12.0) sec INR 1.0 (<1.2) APTT 21.9 L (22.0-30.0) sec Sodium (137-145) mmol/L Potassium (3.5-5.1) mmol/L Chloride (98-107) mmol/L Carbon Dioxide (22-30) mmol/L Anion Gap mmol/L BUN (9-20) mg/dL Creatinine (0.66-1.25) mg/dL Est GFR (CKD-EPI)AfAm (>60 ml/min/1.73 sqM) Est GFR (CKD-EPI)NonAf (>60 ml/min/1.73 sqM) Glucose (74-99) mg/dL POC Glucose (mg/dL) (70-110) mg/dL POC Glu Tool Machine Set Up Operator ID Calcium (8.4-10.2) mg/dL Magnesium (1.6-2.3) mg/dL Total Bilirubin (0.2-1.3) mg/dL AST (17-59) U/L ALT (4-49) U/L Alkaline Phosphatase (38-126) U/L Total Protein (6.3-8.2) g/dL Albumin (3.5-5.0) g/dL Urine Color Light Yellow Urine Appearance Clear (Clear) Urine pH 5.0 (5.0-8.0) Ur Specific [place] 1.029 (1.001-1.035) Urine Protein 1+ H (Negative) Urine Glucose (UA) 4+ H (Negative) Urine Ketones 4+ H (Negative) Urine Blood Negative (Negative) Urine Nitrite Negative (Negative) Urine Bilirubin Negative (Negative) Urine Urobilinogen <2.0 (<2.0) mg/dL Ur Leukocyte Esterase Negative (Negative) Urine WBC 1 (0-5) /hpf Ur Squamous Epith Cells <1 (0-4) /hpf Urine Mucus Rare H (None) /hpf 01/14/23 01/14/23 Range/Units 09:52 10:30 WBC (3.8-10.6) k/uL RBC (4.30-5.90) m/uL Hgb (13.0-17.5) gm/dL Hct (39.0-53.0) % MCV (80.0-100.0) fL MCH (25.0-35.0) pg MCHC (31.0-37.0) g/dL RDW (11.5-15.5) % Plt Count (150-450) k/uL MPV Neutrophils % % Lymphocytes % % Monocytes % % Eosinophils % % Basophils % % Neutrophils # (1.3-7.7) k/uL Lymphocytes # (1.0-4.8) k/uL Monocytes # (0-1.0) k/uL Eosinophils # (0-0.7) k/uL Basophils # (0-0.2) k/uL PT (9.0-12.0) sec INR (<1.2) APTT (22.0-30.0) sec Sodium 134 L (137-145) mmol/L Potassium 4.3 (3.5-5.1) mmol/L Chloride 100 (98-107) mmol/L Carbon Dioxide 15 L (22-30) mmol/L Anion Gap 19 mmol/L BUN 20 (9-20) mg/dL Creatinine 0.66 (0.66-1.25) mg/dL Est GFR (CKD-EPI)AfAm >90 (>60 ml/min/1.73 sqM) Est GFR (CKD-EPI)NonAf >90 (>60 ml/min/1.73 sqM) Glucose 342 H (74-99) mg/dL POC Glucose (mg/dL) 332 H (70-110) mg/dL POC Glu Tool Machine Set Up Operator ID Lucy Tapai Calcium 8.6 (8.4-10.2) mg/dL Magnesium 1.8 (1.6-2.3) mg/dL Total Bilirubin 1.7 H (0.2-1.3) mg/dL AST 22 (17-59) U/L ALT 21 (4-49) U/L Alkaline Phosphatase 92 (38-126) U/L Total Protein 7.1 (6.3-8.2) g/dL Albumin 4.1 (3.5-5.0) g/dL Urine Color Urine Appearance (Clear) Urine pH (5.0-8.0) Ur Specific [place] (1.001-1.035) Urine Protein (Negative) Urine Glucose (UA) (Negative) Urine Ketones (Negative) Urine Blood (Negative) Urine Nitrite (Negative) Urine Bilirubin (Negative) Urine Urobilinogen (<2.0) mg/dL Ur Leukocyte Esterase (Negative) Urine WBC (0-5) /hpf Ur Squamous Epith Cells (0-4) /hpf Urine Mucus (None) /hpf Disposition Clinical Impression: Hyperglycemia, Hypertension Disposition: ADMITTED IP TO THIS HOSP Is patient prescribed a controlled substance at d/c from ED?: No Referrals: None,Stated [REFERRING] - 1-2 days Time of Disposition: 11:24
[2023-01-14 10:07] LABS: Basophils % (A) 0 %; Eosinophils # (A) 0.1 k/uL (0-0.7); Eosinophils % (A) 1 %; HGB 15.6 gm/dL (13.0-17.5); Lymphocytes # (A) 1.4 k/uL (1.0-4.8); Lymphocytes % (A) 17 %; MCV 94.2 fL (80.0-100.0); Mean Platelet Volume 8.3; Monocytes # (A) 0.4 k/uL (0-1.0); Monocytes % (A) 5 %; Neutrophils # (A) 6.5 k/uL (1.3-7.7); Neutrophils % (A) 77 %; Platelet Count 181 k/uL (150-450); RBC 4.88 m/uL (4.30-5.90); RDW 12.8 % (11.5-15.5); WBC 8.5 k/uL (3.8-10.6)
[2023-01-14 10:16] LABS: ALT 21 U/L (4-49); AST 22 U/L (17-59); African American GFR (CKD) >90 (>60 ml/min/1.73 sqM); Albumin 4.1 g/dL (3.5-5.0); Alkaline Phosphatase 92 U/L (38-126); Anion Gap 19 mmol/L; Blood Urea Nitrogen 20 mg/dL (9-20); Calcium 8.6 mg/dL (8.4-10.2); Carbon Dioxide 15 mmol/L (22-30); Chloride 100 mmol/L (98-107); Glucose 342 mg/dL (74-99); Magnesium 1.8 mg/dL (1.6-2.3); Non-African American GFR(CKD) >90 (>60 ml/min/1.73 sqM); Potassium 4.3 mmol/L (3.5-5.1); Sodium 134 mmol/L (137-145); Total Bilirubin 1.7 mg/dL (0.2-1.3); Total Protein 7.1 g/dL (6.3-8.2)
--- NOTE | 2023-01-14 10:25 | XR ---
EXAMINATION TYPE: XR chest 2V DATE OF EXAM: 01/14/2023 COMPARISON: 01/17/2020 HISTORY: 57-year-old male hypertension TECHNIQUE: PA and lateral views FINDINGS: Left anterior chest wall pacemaker generator with right atrial and right ventricular leads. Heart nor mal size. No consolidation or pleural effusion. Aorta and pulmonary vasculature within normal limits. Old healed right posterior sixth and seventh rib fracture deformities. Previous plate and screw fixa tion seventh and eighth posterior left ribs. IMPRESSION: No acute cardiopulmonary process.
[2023-01-14 10:27] LABS: Partial Thromboplastin Time 21.9 sec (22.0-30.0); Prothrombin Time 10.3 sec (9.0-12.0)
[2023-01-14 10:32] LABS: Glucose,Whole Blood 332 mg/dL (70-110)
[2023-01-14 10:46] LABS: Appearance,Urine Clear (Clear); Bilirubin,Urine Negative (Negative); Blood,Urine Negative (Negative); Color,Urine Light Yellow; Glucose,Urine (UA) 4+ (Negative); Leukocyte Esterase,Urine Negative (Negative); Mucus,Urine Rare /hpf; Nitrite,Urine Negative (Negative); Protein,Urine 1+ (Negative); Specific Gravity,Urine 1.029 (1.001-1.035); Squamous Epithelial Cell,Urine <1 /hpf (0-4); Urobilinogen,Urine <2.0 mg/dL (<2.0); WBC,Urine 1 /hpf (0-5)
[2023-01-14 10:52] LABS: Ketones,Urine 4+ (Negative)
[2023-01-14] MEDS ORDERED: INSULIN REGULAR 100 UNIT/ML VIAL (IM/SQ) SQ ONE (11:22)
[2023-01-14] MEDS ORDERED: lisinopriL 10 MG TAB PO STA (11:22)
[2023-01-14] MEDS ORDERED: METOPROLOL SUCCINATE (ER) 25 MG TAB.ER.24H PO STA (11:22)
[2023-01-14] MEDS ORDERED: NALOXONE 0.4 MG/ML 1 ML VIAL IV PRN (11:25)
[2023-01-14] MEDS ORDERED: SODIUM CHLORIDE 0.9% 1,000 ML IV SCH ×2 (11:30→14:30)
[2023-01-14] MEDS ORDERED: Magnesium Replacement Protocol 1 EACH MISC MISCELLANE PRN (14:21)
[2023-01-14] MEDS ORDERED: DEXTROSE 50% SYRINGE 50 ML IVP PRN ×4 (14:21)
[2023-01-14] MEDS ORDERED: Potassium Replacement Protocol 1 EACH MISC MISCELLANE PRN (14:21)
[2023-01-14] MEDS ORDERED: ACETAMINOPHEN TAB 500 MG TAB PO PRN (14:27)
[2023-01-14] MEDS ORDERED: METOCLOPRAMIDE 5 MG TAB PO PRN (14:27)
[2023-01-14] MEDS ORDERED: INSULIN REGULAR BOLUS (FROM DRIP BAG) IV ONE (14:30)
[2023-01-14] MEDS: SODIUM CHLORIDE 0.9% 1,000 ML IV SCH ×2 (14:36→20:48)
[2023-01-14 14:40] LABS: Glucose,Whole Blood 352 mg/dL (70-110)
[2023-01-14] MEDS: INSULIN REGULAR 100 UNIT in SODIUM CHLORIDE 0.9% 100 ML IV SCH (14:45)
--- NOTE | 2023-01-14 15:11 | P.HPIM ---
History of Present Illness H&P Date: 01/14/23 Patient is a 57-year-old male with history of insulin-dependent diabetes, dyslipidemia, hypertension, BPH presenting with concerns of hypertension and hyperglycemia. Patient has been having nausea and vomiting each time he consumes any meal or water for the last few weeks. Patient was pending EGD today, was found to have elevated blood sugar as well as blood pressure, was taken directly to the ED and admitted. Per surgery note, procedure was canceled because of hyperglycemia, intractable nausea and vomiting, and hypertension. He is extremely noncompliant with his insulin, and claims that he forgets to take his insulin on multiple days and nights. He has also been urina ting frequently, and unable to keep fluids down. He denies any fevers or chills. He denies any chest pain, shortness of breath, abdominal pain, or bowel complaints. In the ED, temperature was 98.7, pulse 116, respiratory rate 20, blood pressure 145/85, saturating at 98% on room air. EKG shows atrial tachycardia. Chest x- ray shows no acute process. CBC unremarkable, BMP shows sodium of 134, bicarb 15, anion gap 19, creatinine 0.66, rugose 3042, urine positive for glucose and ketones. Admitted as inpatient for diabetic ketoacidosis. Pertinent positives and negatives as discussed in HPI, a complete review of systems was performed and all other systems are negative. Patient seen and examined at bedside. Vital signs reviewed General: nontoxic, no distress, appears at stated age Derm: warm, dry Head: atraumatic, normocephalic, symmetric Eyes: EOMI, no lid lag, anicteric sclera, pupils equal round reactive to light ENT: Nose and ears atraumatic Neck: No thyromegaly, supple Mouth: no lip lesion, mucus membranes moist Cardiovascular: S1S2 reg, no murmur, no edema Lungs: clear to auscultation bilateral, no rhonchi, no rales, no wheeze, no accessory muscle use Abdominal: soft, nontender to palpation, no guarding, no appreciable organomegaly Ext: no gross muscle atrophy, muscle strength muscle strength 5 out of 5 in all 4 extremities, no contractures Neuro: CN II-XII grossly intact Psych: Alert, oriented, appropriate affect Assessment/Plan: Mild Diabetic ketoacidosis Insulin-dependent diabetes mellitus Intractable nausea and vomiting Dyslipidemia Hiatal hernia -Insulin drip, close monitoring of blood sugars -Normal saline at 200 mL an hour -Holding home antidiabetic regimen -A1c pending -BMP every 4 hours -Nausea or vomiting possibly the setting of hiatal hernia or diabetic gastroparesis -Surgery consulted for endoscopy -Continue statin and hold antihypertensives The patient is admitted with an anticipated greater than 2 midnight stay as inpatient status for evaluation of diabetic ketoacidosis. Surrogate decision-maker: Mother CODE STATUS: Full code DVT prophylaxis: Subcu heparin Anticipated discharge date: Pending clinical course Anticipated discharge place: Pending clinical course A total of 55 minutes was spent on the care of this complex patient more than 50% of the time was spent in counseling and care coordination. Past Medical History Past Medical History: COPD, Diabetes Mellitus, GERD/Reflux, Hyperlipidemia, Hypertension Additional Past Medical History / Comment(s): pacemaker,prolapsed rectum, wound care on hand lft currently History of Any Multi-Drug Resistant Organisms: None Reported Past Surgical History: Unable to Obtain, Pacemaker Additional Past Surgical History / Comment(s): pacemaker implanted 2017. Past Anesthesia/Blood Transfusion Reactions: No Reported Reaction Type of Cardiac Device: Permanent Pacemaker Device Placement Date:: 2017 Past Psychological History: No Psychological Hx Reported Smoking Status: Former smoker - Past Family History Father Additional Family Medical History / Comment(s): pacer Mother Family Medical History: Diabetes Mellitus Additional Family Medical History / Comment(s): pacer Brother(s) Family Medical History: Coronary Artery Disease (CAD), Diabetes Mellitus Additional Family Medical History / Comment(s): pacer Sister(s) Additional Family Medical History / Comment(s): "hole in heart" Medications and Allergies Home Medications Medication Instructions Recorded Confirmed Type Aspirin [Adult Low Dose Aspirin EC] 81 mg PO DAILY 12/24/17 01/14/23 History Atorvastatin [Lipitor] 20 mg PO DAILY 01/17/20 01/14/23 History Empagliflozin [Jardiance] 25 mg PO DAILY 01/17/20 01/14/23 History Magnesium Oxide 400 mg PO DAILY 01/17/20 01/14/23 History Sertraline HCl [Zoloft] 200 mg PO HS 01/17/20 01/14/23 History metFORMIN HCL [Glucophage] 1,000 mg PO BID 01/17/20 01/14/23 History Acetaminophen Tab [Tylenol] 500 mg PO Q6HR PRN #40 tab 01/20/20 01/14/23 Rx Fluticasone Nasal [place] [Flonase 2 spr EA NOSTRIL DAILY 01/14/23 01/14/23 History Nasal [place]] INSULIN LISPRO (humaLOG) [humaLOG] 45 unit SQ AC-TID 01/14/23 01/14/23 History Insulin Glargine,Hum.rec.anlog 60 unit SQ BID 01/14/23 01/14/23 History [Lantus Solostar Pen] Metoclopramide [Reglan] 5 mg PO ACHS PRN 01/14/23 01/14/23 History Omeprazole 40 mg PO DAILY 01/14/23 01/14/23 History Pioglitazone [Actos] 30 mg PO DAILY 01/14/23 01/14/23 History Sulfamethox-Tmp 400-80Mg [Bactrim 1 tab PO DAILY 01/14/23 01/14/23 History SS 400-80 mg] Tamsulosin [Flomax] 0.4 mg PO DAILY 01/14/23 01/14/23 History Valsartan 320 mg PO DAILY 01/14/23 01/14/23 History traZODone HCL 150 mg PO HS 01/14/23 01/14/23 History Allergies Allergy/AdvReac Type Severity Reaction Status Date / Time dulaglutide [From [facility]] AdvReac pancreatiti Verified 01/14/23 11:49 s Physical Exam Vitals: Vital Signs Temp Pulse Resp BP Pulse Ox 01/14/23 12:45 111 H 17 146/95 94 L 01/14/23 11:07 169/112 01/14/23 09:10 98.7 F 116 H 20 145/85 98 Intake and Output 01/14/23 01/14/23 01/14/23 06:59 14:59 22:59 Other: Weight 86.183 kg Results CBC & Chem 7: 01/14/23 09:52 01/14/23 09:52 Labs: Abnormal Lab Results - Last 24 Hours (Table) 01/14/23 01/14/23 01/14/23 Range/Units 09:52 09:52 09:52 APTT 21.9 L (22.0-30.0) sec Sodium 134 L (137-145) mmol/L Carbon Dioxide 15 L (22-30) mmol/L Glucose 342 H (74-99) mg/dL POC Glucose (mg/dL) (70-110) mg/dL Total Bilirubin 1.7 H (0.2-1.3) mg/dL Urine Protein 1+ H (Negative) Urine Glucose (UA) 4+ H (Negative) Urine Ketones 4+ H (Negative) Urine Mucus Rare H (None) /hpf 01/14/23 01/14/23 Range/Units 10:30 14:37 APTT (22.0-30.0) sec Sodium (137-145) mmol/L Carbon Dioxide (22-30) mmol/L Glucose (74-99) mg/dL POC Glucose (mg/dL) 332 H 352 H (70-110) mg/dL Total Bilirubin (0.2-1.3) mg/dL Urine Protein (Negative) Urine Glucose (UA) (Negative) Urine Ketones (Negative) Urine Mucus (None) /hpf
[2023-01-14 15:33] LABS: Glucose,Whole Blood 336 mg/dL (70-110)
--- NOTE | 2023-01-14 15:54 | P.GSCN ---
History of Present Illness Consult date: 01/14/23 History of present illness: CHIEF COMPLAINT: Hypertension and hyperglycemia HISTORY OF PRESENT ILLNESS: This is a 57-year-old male who was initially scheduled for EGD today with Dr. Swift outpatient. However, he was hypertensive and had evidence of hyperglycemia with blood sugars in the 300s and procedure was canceled. Patient then informed to come to the ER. Patient has been noncompliant with his insulin. He is also having nausea and vomiting. Admitted to the hospital with mild diabetic ketoacidosis and admitted to medicine service. PAST MEDICAL HISTORY: See list. PAST SURGICAL HISTORY: See list. MEDICATIONS: See list. ALLERGIES: See list. SOCIAL HISTORY: No illicit drug use. REVIEW OF SYSTEMS: CONSTITUTIONAL: Denies fever or chills. HEENT: Denies blurred vision, vision changes, or eye pain. Denies hemoptysis ENDOCRINE: Denies heat or cold intolerance. CARDIOVASCULAR: Denies chest pain or pressure. RESPIRATORY: No shortness of breath. GASTROINTESTINAL: Denies abdominal pain. Please refer to HPI NEURO: Denies history of seizures. PSYCH: No depression or suicidal ideation HEMATOLOGIC: Denies bleeding disorders. LYMPHATIC: The patient denies any lumps and bumps around the neck. GENITOURINARY: Denies any blood in urine or increased urinary frequency. MUSCULOSKELETAL: Denies myalgias. Denies joint swelling. Denies decreased range of motion beyond patients baseline. SKIN: Denies pruitis. Denies rash. PHYSICAL EXAM: VITAL SIGNS: Reviewed GENERAL: Well-developed in no acute distress. HEENT: No sclera icterus. Extraocular movements grossly intact. Moist buccal mucosa. Head is atraumatic, normocephalic. Hears conversational speech. No nasal drainage. NECK: Supple without lymphadenopathy. CHEST: Non-labored respirations and equal bilateral excursions. CARDIOVASCULAR: Palpable 2+ radial pulses. ABDOMEN: Soft. Nondistended. Nontender MUSCULOSKELETAL: No clubbing or cyanosis. NEUROLOGIC: No focal or lateralizing signs. Cranial nerves II through XII grossly intact. PSYCH: Appropriate affect. Alert and oriented to person, place and time. SKIN: Well perfused. Good skin turgor. LABORATORY DATA: WBC is 8.5 Hgb 15.6 platelets 181 Sodium is 134 potassium 4.3 creatinine 0.66 Glucose 336 Urinalysis 4+ ketones IMAGING: Chest x-ray no acute cardiopulmonary process ASSESSMENT: 1. Intractable nausea and vomiting with weight loss 2. Uncontrolled hyperglycemia 3. Mild diabetic ketoacidosis 4. Hypertension with uncontrolled blood pressures PLAN: -Endoscopy will be postponed until patient is medically stable -Continue medical management of blood sugar and hypertension -Continue supportive care Physician Shipyard Supervisor note has been reviewed by physician. Signing provider agrees with the documented findings, assessment, and plan of care. Past Medical History Past Medical History: COPD, Diabetes Mellitus, GERD/Reflux, Hyperlipidemia, Hypertension Additional Past Medical History / Comment(s): pacemaker,prolapsed rectum, wound care on hand lft currently History of Any Multi-Drug Resistant Organisms: None Reported Past Surgical History: Unable to Obtain, Pacemaker Additional Past Surgical History / Comment(s): pacemaker implanted 2017. Past Anesthesia/Blood Transfusion Reactions: No Reported Reaction Type of Cardiac Device: Permanent Pacemaker Device Placement Date:: 2017 Past Psychological History: No Psychological Hx Reported Smoking Status: Former smoker - Past Family History Father Additional Family Medical History / Comment(s): pacer Mother Family Medical History: Diabetes Mellitus Additional Family Medical History / Comment(s): pacer Brother(s) Family Medical History: Coronary Artery Disease (CAD), Diabetes Mellitus Additional Family Medical History / Comment(s): pacer Sister(s) Additional Family Medical History / Comment(s): "hole in heart" Medications and Allergies Home Medications Medication Instructions Recorded Confirmed Type Aspirin [Adult Low Dose Aspirin EC] 81 mg PO DAILY 12/24/17 01/14/23 History Atorvastatin [Lipitor] 20 mg PO DAILY 01/17/20 01/14/23 History Empagliflozin [Jardiance] 25 mg PO DAILY 01/17/20 01/14/23 History Magnesium Oxide 400 mg PO DAILY 01/17/20 01/14/23 History Sertraline HCl [Zoloft] 200 mg PO HS 01/17/20 01/14/23 History metFORMIN HCL [Glucophage] 1,000 mg PO BID 01/17/20 01/14/23 History Acetaminophen Tab [Tylenol] 500 mg PO Q6HR PRN #40 tab 01/20/20 01/14/23 Rx Fluticasone Nasal [place] [Flonase 2 spr EA NOSTRIL DAILY 01/14/23 01/14/23 History Nasal [place]] INSULIN LISPRO (humaLOG) [humaLOG] 45 unit SQ AC-TID 01/14/23 01/14/23 History Insulin Glargine,Hum.rec.anlog 60 unit SQ BID 01/14/23 01/14/23 History [Lantus Solostar Pen] Metoclopramide [Reglan] 5 mg PO ACHS PRN 01/14/23 01/14/23 History Omeprazole 40 mg PO DAILY 01/14/23 01/14/23 History Pioglitazone [Actos] 30 mg PO DAILY 01/14/23 01/14/23 History Sulfamethox-Tmp 400-80Mg [Bactrim 1 tab PO DAILY 01/14/23 01/14/23 History SS 400-80 mg] Tamsulosin [Flomax] 0.4 mg PO DAILY 01/14/23 01/14/23 History Valsartan 320 mg PO DAILY 01/14/23 01/14/23 History traZODone HCL 150 mg PO HS 01/14/23 01/14/23 History Allergies Allergy/AdvReac Type Severity Reaction Status Date / Time dulaglutide [From [facility]] AdvReac pancreatiti Verified 01/14/23 11:49 s Surgical - Exam Vital Signs Temp Pulse Resp BP Pulse Ox 98.7 F 116 H 20 145/85 98 01/14/23 09:10 01/14/23 09:10 01/14/23 09:10 01/14/23 09:10 01/14/23 09:10 Results - Labs 01/14/23 09:52 01/14/23 09:52 Abnormal Lab Results - Last 24 Hours (Table) 01/14/23 01/14/23 01/14/23 Range/Units 09:52 09:52 09:52 APTT 21.9 L (22.0-30.0) sec Sodium 134 L (137-145) mmol/L Carbon Dioxide 15 L (22-30) mmol/L Glucose 342 H (74-99) mg/dL POC Glucose (mg/dL) (70-110) mg/dL Total Bilirubin 1.7 H (0.2-1.3) mg/dL Urine Protein 1+ H (Negative) Urine Glucose (UA) 4+ H (Negative) Urine Ketones 4+ H (Negative) Urine Mucus Rare H (None) /hpf 01/14/23 Range/Units 10:30 APTT (22.0-30.0) sec Sodium (137-145) mmol/L Carbon Dioxide (22-30) mmol/L Glucose (74-99) mg/dL POC Glucose (mg/dL) 332 H (70-110) mg/dL Total Bilirubin (0.2-1.3) mg/dL Urine Protein (Negative) Urine Glucose (UA) (Negative) Urine Ketones (Negative) Urine Mucus (None) /hpf Diabetes panel 01/14/23 Range/Units 09:52 Sodium 134 L (137-145) mmol/L Potassium 4.3 (3.5-5.1) mmol/L Chloride 100 (98-107) mmol/L Carbon Dioxide 15 L (22-30) mmol/L BUN 20 (9-20) mg/dL Creatinine 0.66 (0.66-1.25) mg/dL Glucose 342 H (74-99) mg/dL Calcium 8.6 (8.4-10.2) mg/dL AST 22 (17-59) U/L ALT 21 (4-49) U/L Alkaline Phosphatase 92 (38-126) U/L Total Protein 7.1 (6.3-8.2) g/dL Albumin 4.1 (3.5-5.0) g/dL Calcium panel 01/14/23 Range/Units 09:52 Calcium 8.6 (8.4-10.2) mg/dL Albumin 4.1 (3.5-5.0) g/dL Pituitary panel 01/14/23 Range/Units 09:52 Sodium 134 L (137-145) mmol/L Potassium 4.3 (3.5-5.1) mmol/L Chloride 100 (98-107) mmol/L Carbon Dioxide 15 L (22-30) mmol/L BUN 20 (9-20) mg/dL Creatinine 0.66 (0.66-1.25) mg/dL Glucose 342 H (74-99) mg/dL Calcium 8.6 (8.4-10.2) mg/dL Adrenal panel 01/14/23 Range/Units 09:52 Sodium 134 L (137-145) mmol/L Potassium 4.3 (3.5-5.1) mmol/L Chloride 100 (98-107) mmol/L Carbon Dioxide 15 L (22-30) mmol/L BUN 20 (9-20) mg/dL Creatinine 0.66 (0.66-1.25) mg/dL Glucose 342 H (74-99) mg/dL Calcium 8.6 (8.4-10.2) mg/dL Total Bilirubin 1.7 H (0.2-1.3) mg/dL AST 22 (17-59) U/L ALT 21 (4-49) U/L Alkaline Phosphatase 92 (38-126) U/L Total Protein 7.1 (6.3-8.2) g/dL Albumin 4.1 (3.5-5.0) g/dL
[2023-01-14] MEDS: HEPARIN SODIUM,PORCINE/PF 5,000 UNIT/0.5 ML SYRINGE SQ SCH ×2 (16:15→23:38)
[2023-01-14 16:34] LABS: Glucose,Whole Blood 254 mg/dL (70-110)
[2023-01-14] MEDS: D5-0.45% NACL WITH KCL 20MEQ/L 1,000 ML IV SCH ×2 (16:52→21:30)
[2023-01-14 16:59] LABS: VBG PH 7.35 (7.31-7.41)
[2023-01-14 17:41] LABS: Glucose,Whole Blood 255 mg/dL (70-110)
[2023-01-14 17:50] LABS: African American GFR (CKD) >90 (>60 ml/min/1.73 sqM); Anion Gap 16 mmol/L; Blood Urea Nitrogen 21 mg/dL (9-20); Carbon Dioxide 17 mmol/L (22-30); Chloride 100 mmol/L (98-107); Glucose 254 mg/dL (74-99); Non-African American GFR(CKD) >90 (>60 ml/min/1.73 sqM); Potassium 3.6 mmol/L (3.5-5.1); Sodium 133 mmol/L (137-145)
[2023-01-14 18:29] LABS: Glucose,Whole Blood 424 mg/dL (70-110)
[2023-01-14 19:35] LABS: Glucose,Whole Blood 306 mg/dL (70-110)
[2023-01-14] MEDS: SERTRALINE 100 MG TAB PO SCH (19:50)
[2023-01-14] MEDS: traZODone HCL 50 MG TAB PO SCH (19:51)
[2023-01-14 20:38] LABS: Glucose,Whole Blood 251 mg/dL (70-110)
[2023-01-14 21:07] LABS: African American GFR (CKD) >90 (>60 ml/min/1.73 sqM); Anion Gap 10 mmol/L; Blood Urea Nitrogen 18 mg/dL (9-20); Carbon Dioxide 20 mmol/L (22-30); Chloride 101 mmol/L (98-107); Glucose 265 mg/dL (74-99); Non-African American GFR(CKD) >90 (>60 ml/min/1.73 sqM); Phosphorus 1.5 mg/dL (2.5-4.5); Potassium 3.5 mmol/L (3.5-5.1); Sodium 131 mmol/L (137-145)
[2023-01-14 21:51] LABS: Glucose,Whole Blood 227 mg/dL (70-110)
[2023-01-14 23:03] LABS: Glucose,Whole Blood 188 mg/dL (70-110)
[2023-01-14 23:59] LABS: Glucose,Whole Blood 149 mg/dL (70-110)
[2023-01-15 00:58] LABS: Glucose,Whole Blood 127 mg/dL (70-110)
[2023-01-15] MEDS: INSULIN REGULAR 100 UNIT in SODIUM CHLORIDE 0.9% 100 ML IV SCH (00:59)
[2023-01-15 01:53] LABS: African American GFR (CKD) >90 (>60 ml/min/1.73 sqM); Anion Gap 7 mmol/L; Blood Urea Nitrogen 16 mg/dL (9-20); Calcium 8.1 mg/dL (8.4-10.2); Carbon Dioxide 21 mmol/L (22-30); Chloride 102 mmol/L (98-107); Glucose 138 mg/dL (74-99); Non-African American GFR(CKD) >90 (>60 ml/min/1.73 sqM); Sodium 130 mmol/L (137-145)
[2023-01-15 01:58] LABS: Glucose,Whole Blood 132 mg/dL (70-110)
[2023-01-15 02:04] LABS: Potassium 3.6 mmol/L (3.5-5.1)
[2023-01-15] MEDS ORDERED: INSULIN NPH 100 UNIT/ML 10 ML VIAL SQ ONE (02:47)
[2023-01-15] MEDS: SODIUM CHLORIDE 0.9% 1,000 ML IV SCH ×5 (03:07→19:03)
[2023-01-15 05:55] LABS: Glucose,Whole Blood 272 mg/dL (70-110)
[2023-01-15] MEDS: D5-0.45% NACL WITH KCL 20MEQ/L 1,000 ML IV SCH ×3 (06:35→19:03)
[2023-01-15] MEDS: INSULIN DETEMIR (LEVEMIR) 100 UNIT/ML SYR SQ SCH (06:37)
[2023-01-15] MEDS: PANTOPRAZOLE 40 MG TABLET PO SCH (06:38)
[2023-01-15] MEDS: INSULIN ASPART (NovoLOG) 100 UNIT/ML VIAL SQ SCH ×7 (06:57→20:20)
[2023-01-15] MEDS: HEPARIN SODIUM,PORCINE/PF 5,000 UNIT/0.5 ML SYRINGE SQ SCH ×3 (08:37→23:06)
[2023-01-15] MEDS: ASPIRIN 81 MG PO SCH (08:38)
[2023-01-15] MEDS: VALSARTAN 160 MG TAB PO SCH (08:38)
[2023-01-15] MEDS: TAMSULOSIN 0.4 MG CAP.ER.24H PO SCH (08:38)
[2023-01-15] MEDS: ATORVASTATIN 20 MG TAB PO SCH (08:38)
[2023-01-15 09:24] LABS: Basophils % (A) 0 %; Eosinophils # (A) 0.1 k/uL (0-0.7); Eosinophils % (A) 1 %; HCT 45.4 % (39.0-53.0); HGB 15.2 gm/dL (13.0-17.5); Lymphocytes # (A) 1.5 k/uL (1.0-4.8); Lymphocytes % (A) 25 %; MCH 31.1 pg (25.0-35.0); MCHC 33.4 g/dL (31.0-37.0); MCV 93.3 fL (80.0-100.0); Mean Platelet Volume 9.1; Monocytes # (A) 0.4 k/uL (0-1.0); Monocytes % (A) 7 %; Neutrophils # (A) 3.9 k/uL (1.3-7.7); Neutrophils % (A) 65 %; Platelet Count 146 k/uL (150-450); RBC 4.87 m/uL (4.30-5.90); RDW 13.3 % (11.5-15.5)
[2023-01-15 09:33] LABS: African American GFR (CKD) >90 (>60 ml/min/1.73 sqM); Anion Gap 9 mmol/L; Blood Urea Nitrogen 14 mg/dL (9-20); Carbon Dioxide 19 mmol/L (22-30); Chloride 103 mmol/L (98-107); Glucose 345 mg/dL (74-99); Non-African American GFR(CKD) >90 (>60 ml/min/1.73 sqM); Sodium 131 mmol/L (137-145)
[2023-01-15 09:34] LABS: Potassium 4.2 mmol/L (3.5-5.1)
[2023-01-15] MEDS: FLUTICASONE 50MCG/SPRAY NASAL 16GM EA NOSTRIL SCH (09:43)
[2023-01-15 11:44] LABS: Glucose,Whole Blood 201 mg/dL (70-110)
[2023-01-15 12:30] VITALS: BMI 30.7
--- NOTE | 2023-01-15 12:48 | P.PN ---
Subjective Progress Note Date: 01/15/23 Hospital Course: 57-year-old male with history of insulin-dependent diabetes, dyslipidemia, hypertension, BPH presenting with concerns of hypertension and hyperglycemia. In the ED, temperature was 98.7, pulse 116, respiratory rate 20, blood pressure 145/85, saturating at 98% on room air. EKG shows atrial tachycardia. Chest x- ray shows no acute process. CBC unremarkable, BMP shows sodium of 134, bicarb 15, anion gap 19, creatinine 0.66, sugar 265, urine positive for glucose and ke tones. Admitted as inpatient for diabetic ketoacidosis. Now transition off of insulin, on subcu insulin. Pending EGD. Subjective: Seen and examined at bedside. No acute events overnight. Claims that he's feeling a lot better. Pending EGD today. Pertinent positives and negatives as discussed above, a complete review of systems was performed and all other systems are negative. Vitals Signs Reviewed. General: nontoxic, no distress, appears at stated age Derm: warm, dry Head: atraumatic, normocephalic, symmetric Eyes: EOMI, no lid lag, anicteric sclera Mouth: no lip lesion, mucus membranes moist Cardiovascular: S1S2 reg, no murmur Lungs: CTA bilateral, no rhonchi, no rales , no accessory muscle use Abdominal: soft, nontender to palpation, no guarding, no appreciable organomegaly Ext: no gross muscle atrophy, no edema, no contractures Neuro: CN II-XI grossly intact, no focal neuro deficits Psych: Alert, oriented, appropriate affect Data Reviewed Today: Pertinent Labs: Sodium 131, potassium 3.5, bicarb 20, anion gap 10, creatinine 0.47, sugars range between 149-264 Imaging: No new imaging Assessment and Plan: Mild Diabetic ketoacidosis, resolved Insulin-dependent diabetes mellitus, A1c 14.1 Intractable nausea and vomiting Dyslipidemia Hiatal hernia Hypertension -Patient is currently nothing by mouth for EGD, on D5 half-normal saline at 1 50 mL an hour -Levemir 26 units daily, 9 units 3 times a day aspart, sliding scale insulin -Nausea or vomiting possibly the setting of hiatal hernia or diabetic gastroparesis -Reglan 5 mg before meals at bedtime as needed -Surgery following, likely EGD today -Blood pressure now well controlled on home medications DVT ppx: Subcu heparin Code status: full code Anticipated discharge place: home Anticipated discharge time: likely tomorrow Objective - Vital Signs Vital signs: Vital Signs Temp 97.8 F 01/15/23 08:29 Pulse 91 01/15/23 11:11 Resp 16 01/15/23 11:11 BP 100/56 01/15/23 11:11 Pulse Ox 98 01/15/23 11:11 FiO2 Intake & Output 01/14/23 01/15/23 01/15/23 18:59 06:59 18:59 Intake Total 36.258 68.115 180 Output Total 750 Balance 36.258 -681.885 180 Weight 86.183 kg 86.183 kg Intake: Intake, IV Titration 36.258 68.115 Amount Insulin Regular 100 unit 36.258 68.115 In Sodium Chloride 0.9% 100 ml @ 0.1 UNITS/KG/HR 8.704 mls/hr IV .[id number] [facility] Rx#:[id number] Oral 180 Output: Urine 750 Other: Voiding Method Urinal Toilet Urinal # Bowel Movements 0 - Labs CBC & Chem 7: 01/15/23 08:28 01/15/23 08:28 Labs: Abnormal Lab Results - Last 24 Hours (Table) 01/14/23 01/14/23 01/14/23 Range/Units 09:52 14:37 15:31 Plt Count (150-450) k/uL VBG HCO3 (24-28) mmol/L Sodium (137-145) mmol/L Carbon Dioxide (22-30) mmol/L BUN (9-20) mg/dL Creatinine (0.66-1.25) mg/dL Glucose (74-99) mg/dL POC Glucose (mg/dL) 352 H 336 H (70-110) mg/dL Hemoglobin A1c 14.1 H (<=6.0) % Calcium (8.4-10.2) mg/dL Phosphorus (2.5-4.5) mg/dL 01/14/23 01/14/23 01/14/23 Range/Units 16:30 16:30 16:30 Plt Count (150-450) k/uL VBG HCO3 20 L (24-28) mmol/L Sodium 133 L (137-145) mmol/L Carbon Dioxide 17 L (22-30) mmol/L BUN 21 H (9-20) mg/dL Creatinine 0.62 L (0.66-1.25) mg/dL Glucose 254 H (74-99) mg/dL POC Glucose (mg/dL) 254 H (70-110) mg/dL Hemoglobin A1c (<=6.0) % Calcium (8.4-10.2) mg/dL Phosphorus 2.0 L (2.5-4.5) mg/dL 01/14/23 01/14/23 01/14/23 Range/Units 17:38 18:28 19:34 Plt Count (150-450) k/uL VBG HCO3 (24-28) mmol/L Sodium (137-145) mmol/L Carbon Dioxide (22-30) mmol/L BUN (9-20) mg/dL Creatinine (0.66-1.25) mg/dL Glucose (74-99) mg/dL POC Glucose (mg/dL) 255 H 424 H 306 H (70-110) mg/dL Hemoglobin A1c (<=6.0) % Calcium (8.4-10.2) mg/dL Phosphorus (2.5-4.5) mg/dL 01/14/23 01/14/23 01/14/23 Range/Units 20:23 20:36 21:50 Plt Count (150-450) k/uL VBG HCO3 (24-28) mmol/L Sodium 131 L (137-145) mmol/L Carbon Dioxide 20 L (22-30) mmol/L BUN (9-20) mg/dL Creatinine 0.47 L (0.66-1.25) mg/dL Glucose 265 H (74-99) mg/dL POC Glucose (mg/dL) 251 H 227 H (70-110) mg/dL Hemoglobin A1c (<=6.0) % Calcium (8.4-10.2) mg/dL Phosphorus 1.5 L (2.5-4.5) mg/dL 01/14/23 01/14/23 01/15/23 Range/Units 23:01 23:58 00:34 Plt Count (150-450) k/uL VBG HCO3 (24-28) mmol/L Sodium 130 L (137-145) mmol/L Carbon Dioxide 21 L (22-30) mmol/L BUN (9-20) mg/dL Creatinine 0.41 L (0.66-1.25) mg/dL Glucose 138 H (74-99) mg/dL POC Glucose (mg/dL) 188 H 149 H (70-110) mg/dL Hemoglobin A1c (<=6.0) % Calcium 8.1 L (8.4-10.2) mg/dL Phosphorus (2.5-4.5) mg/dL 01/15/23 01/15/23 01/15/23 Range/Units 00:56 01:57 05:54 Plt Count (150-450) k/uL VBG HCO3 (24-28) mmol/L Sodium (137-145) mmol/L Carbon Dioxide (22-30) mmol/L BUN (9-20) mg/dL Creatinine (0.66-1.25) mg/dL Glucose (74-99) mg/dL POC Glucose (mg/dL) 127 H 132 H 272 H (70-110) mg/dL Hemoglobin A1c (<=6.0) % Calcium (8.4-10.2) mg/dL Phosphorus (2.5-4.5) mg/dL 01/15/23 01/15/23 01/15/23 Range/Units 08:28 08:28 11:42 Plt Count 146 L (150-450) k/uL VBG HCO3 (24-28) mmol/L Sodium 131 L (137-145) mmol/L Carbon Dioxide 19 L (22-30) mmol/L BUN (9-20) mg/dL Creatinine 0.51 L (0.66-1.25) mg/dL Glucose 345 H (74-99) mg/dL POC Glucose (mg/dL) 201 H (70-110) mg/dL Hemoglobin A1c (<=6.0) % Calcium 8.0 L (8.4-10.2) mg/dL Phosphorus (2.5-4.5) mg/dL
[2023-01-15] MEDS ORDERED: PROPOFOL 10 MG/ML 20 ML VIAL IV ONE (13:45)
[2023-01-15] MEDS ORDERED: LIDOCAINE 2% INJ 20 MG/ML (2 ML VIAL) ONE (13:45)
[2023-01-15] MEDS ORDERED: SODIUM CHLORIDE 0.9% 500 ML 500 ML IV ONE (13:48)
--- NOTE | 2023-01-15 14:40 | P.PCN ---
Date of Procedure: 01/15/23 Description of Procedure: PREOPERATIVE DIAGNOSIS: Diaphragmatic hiatal hernia Intractable nausea or vomiting Diabetes type 2, uncontrolled hyperglycemia Hypertensive heart disease, uncontrolled POSTOPERATIVE DIAGNOSIS: Acute gastric ulcer without bleeding Acute gastritis Acute duodenal ulcer without bleeding Diaphragmatic hiatal hernia OPERATION: Esophagogastroduodenoscopy with biopsies along antrum and duodenal SURGEON: Marta Swift MD ANESTHESIA: MAC. INDICATIONS: The patient is a 57-year-old male who presents with intractable nausea and vomiting and hiatal hernia. Benefits and risks of the procedure were described. Informed consent was obtained. DESCRIPTION: The patient was brought into the endoscopy suite and laid in the left lateral decubitus position. An Olympus gastroscope was passed along the posterior oropharynx down to the distal esophagus where the squamocolumnar junction was encountered at 37 cm from the incisors. The stomach was entered and no bile reflux was found. Additional findings are listed below. Biopsies with cold forceps were obtained of the antrum. The first through third portion of the duodenum was examined. Retroflexion of the scope confirmed Hill grade 3 lower esophageal valve. The squamocolumnar junction demonstrated LA grade B erosive esophagitis. The stomach was desufflated. The patient tolerated the procedure well. FINDINGS: Squamocolumnar junction 37 cm from the incisors. Diaphragmatic hiatus at 40 cm. Hiatal hernia, 3 cm Hill grade 4 lower esophageal valve. LA grade B erosive esophagitis. Acute gastric ulcers, 2 mm 3, punctate along antrum without bleeding Gastritis with bleeding Acute duodenitis without bleeding Acute duodenal ulcers, 2 mm Biopsies obtained of the duodenum. Chronic gastritis with biopsies obtained. RECOMMENDATIONS: Recommend control of blood sugars as hemoglobin A1c over 14.0 to mitigate gastroparesis Protonix 40 mg daily for gastric ulcers Carafate 1 g twice a day daily for duodenal ulcers
[2023-01-15 16:44] LABS: Glucose,Whole Blood 258 mg/dL (70-110)
[2023-01-15] MEDS: SUCRALFATE 1 GM TAB PO SCH (16:47)
[2023-01-15 19:59] LABS: Glucose,Whole Blood 264 mg/dL (70-110)
[2023-01-15] MEDS: SERTRALINE 100 MG TAB PO SCH (20:19)
[2023-01-15] MEDS: traZODone HCL 50 MG TAB PO SCH (20:19)
[2023-01-16 02:39] LABS: Glucose,Whole Blood 235 mg/dL (70-110)
[2023-01-16] MEDS: INSULIN ASPART (NovoLOG) 100 UNIT/ML VIAL SQ SCH ×5 (02:45→11:53)
[2023-01-16] MEDS: SODIUM CHLORIDE 0.9% 1,000 ML IV SCH ×3 (04:45→11:56)
[2023-01-16] MEDS: D5-0.45% NACL WITH KCL 20MEQ/L 1,000 ML IV SCH ×2 (04:45→07:36)
[2023-01-16] MEDS: SUCRALFATE 1 GM TAB PO SCH ×2 (05:51→11:53)
[2023-01-16] MEDS: PANTOPRAZOLE 40 MG TABLET PO SCH (05:51)
[2023-01-16 07:19] LABS: Glucose,Whole Blood 266 mg/dL (70-110)
[2023-01-16] MEDS: VALSARTAN 160 MG TAB PO SCH (07:35)
[2023-01-16] MEDS: ASPIRIN 81 MG PO SCH (07:35)
[2023-01-16] MEDS: INSULIN DETEMIR (LEVEMIR) 100 UNIT/ML SYR SQ SCH (07:35)
[2023-01-16] MEDS: ATORVASTATIN 20 MG TAB PO SCH (07:35)
[2023-01-16] MEDS: TAMSULOSIN 0.4 MG CAP.ER.24H PO SCH (07:35)
[2023-01-16] MEDS: FLUTICASONE 50MCG/SPRAY NASAL 16GM EA NOSTRIL SCH (07:36)
[2023-01-16] MEDS: HEPARIN SODIUM,PORCINE/PF 5,000 UNIT/0.5 ML SYRINGE SQ SCH (07:36)
[2023-01-16 07:38] LABS: Basophils % (A) 0 %; Eosinophils # (A) 0.1 k/uL (0-0.7); Eosinophils % (A) 3 %; HCT 43.6 % (39.0-53.0); Lymphocytes # (A) 1.7 k/uL (1.0-4.8); Lymphocytes % (A) 35 %; MCH 31.9 pg (25.0-35.0); MCHC 34.5 g/dL (31.0-37.0); MCV 92.5 fL (80.0-100.0); Mean Platelet Volume 8.1; Monocytes # (A) 0.3 k/uL (0-1.0); Monocytes % (A) 7 %; Neutrophils # (A) 2.5 k/uL (1.3-7.7); Neutrophils % (A) 52 %; Platelet Count 132 k/uL (150-450); RBC 4.72 m/uL (4.30-5.90); RDW 12.9 % (11.5-15.5); WBC 4.8 k/uL (3.8-10.6)
[2023-01-16 07:42] VITALS: TEMP 97.9
[2023-01-16 07:55] LABS: African American GFR (CKD) >90 (>60 ml/min/1.73 sqM); Anion Gap 6 mmol/L; Blood Urea Nitrogen 14 mg/dL (9-20); Calcium 8.2 mg/dL (8.4-10.2); Carbon Dioxide 25 mmol/L (22-30); Chloride 106 mmol/L (98-107); Glucose 233 mg/dL (74-99); Non-African American GFR(CKD) >90 (>60 ml/min/1.73 sqM); Potassium 3.4 mmol/L (3.5-5.1); Sodium 137 mmol/L (137-145)
[2023-01-16] MEDS: POTASSIUM CHLORIDE 10 MEQ in WATER FOR INJECTION 1 100ML.BAG IVPB SCH ×4 (09:03→13:08)
--- NOTE | 2023-01-16 11:18 | P.PN ---
Subjective Progress Note Date: 01/16/23 CHIEF COMPLAINT: Nausea and vomiting HISTORY OF PRESENT ILLNESS: Patient is status post EGD with biopsies. Results of EGD demonstrated Acute gastric ulcer without bleeding, Acute gastritis, Acute duodenal ulcer without bleeding, Diaphragmatic hiatal hernia. Patient is tolerating diet. Denies any abdominal pain. Afebrile. Mildly tachycardic. WBC 4.8 Hgb 15 platelets 132 potassium is 3.4 and patient receiving supplement PHYSICAL EXAM: VITAL SIGNS: Reviewed GENERAL: Well-developed in no acute distress. HEENT: No sclera icterus. Extraocular movements grossly intact. Moist buccal mucosa. Head is atraumatic, normocephalic. Hears conversational speech. No nasal drainage. NECK: Supple without lymphadenopathy. CHEST: Non-labored respirations and equal bilateral excursions. CARDIOVASCULAR: Palpable 2+ radial pulses. ABDOMEN: Soft. Nondistended. Nontender. MUSCULOSKELETAL: No clubbing or cyanosis. NEUROLOGIC: No focal or lateralizing signs. Cranial nerves II through XII grossly intact. PSYCH: Appropriate affect. Alert and oriented to person, place and time. SKIN: Well perfused. Good skin turgor. ASSESSMENT: Acute gastric ulcer without bleeding Acute gastritis Acute duodenal ulcer without bleeding Diaphragmatic hiatal hernia PLAN: -Patient is stable for discharge from surgical standpoint when medically cleared -Recommend control of blood sugars as hemoglobin A1c over 14.0 to mitigate gastroparesis -Protonix 40 mg daily for gastric ulcers -Carafate 1 g twice a day daily for duodenal ulcers Physician Commission Agent Livestock note has been reviewed by physician. Signing provider agrees with the documented findings, assessment, and plan of care. Objective - Vital Signs Vital signs: Vital Signs Temp 97.9 F 01/16/23 07:33 Pulse 116 H 01/16/23 07:33 Resp 18 01/16/23 07:33 BP 126/81 01/16/23 07:33 Pulse Ox 97 01/16/23 07:33 FiO2 Intake & Output 01/15/23 01/16/23 01/16/23 18:59 06:59 18:59 Intake Total 460 360 Balance 460 360 Weight 86.183 kg Intake: IV 100 Oral 360 360 Other: Voiding Method Toilet Toilet Toilet Urinal Urinal Urinal # Voids 2 # Bowel Movements 1 - Labs CBC & Chem 7: 01/16/23 06:56 01/16/23 06:56 Labs: Abnormal Lab Results - Last 24 Hours (Table) 01/15/23 01/15/23 01/15/23 Range/Units 11:42 16:42 19:58 Plt Count (150-450) k/uL Potassium (3.5-5.1) mmol/L Creatinine (0.66-1.25) mg/dL Glucose (74-99) mg/dL POC Glucose (mg/dL) 201 H 258 H 264 H (70-110) mg/dL Calcium (8.4-10.2) mg/dL 01/16/23 01/16/23 01/16/23 Range/Units 02:37 06:56 06:56 Plt Count 132 L (150-450) k/uL Potassium 3.4 L (3.5-5.1) mmol/L Creatinine 0.49 L (0.66-1.25) mg/dL Glucose 233 H (74-99) mg/dL POC Glucose (mg/dL) 235 H (70-110) mg/dL Calcium 8.2 L (8.4-10.2) mg/dL 01/16/23 Range/Units 07:17 Plt Count (150-450) k/uL Potassium (3.5-5.1) mmol/L Creatinine (0.66-1.25) mg/dL Glucose (74-99) mg/dL POC Glucose (mg/dL) 266 H (70-110) mg/dL Calcium (8.4-10.2) mg/dL
[2023-01-16 11:30] LABS: Glucose,Whole Blood 211 mg/dL (70-110)
--- NOTE | 2023-01-16 11:34 | P.DS ---
Providers Date of admission: 01/14/23 11:26 Expected date of discharge: 01/16/23 Attending physician: Mimi Dorsey DO Consults: 01/14/23 11:25 Consult Physician Routine Consulting Provider: Marta Swift Consult Reason/Comments: Endoscopy Do you want consulting provider notified?: Already Contacted Primary care physician: Gricelda Grant MD Hospital Course: Discharge Diagnosis: Mild Diabetic ketoacidosis Insulin-dependent diabetes mellitus, A1c 14.1 Intractable nausea and vomiting Dyslipidemia Hiatal hernia Hypertension Gastritis, duodenitis, gastric and duodenal ulcers, esophagitis Hospital Course: 57-year-old male with history of insulin-dependent diabetes, dyslipidemia, hypertension, BPH presenting with concerns of hypertension and hyperglycemia. In the ED, temperature was 98.7, pulse 116, respiratory rate 20, blood pressure 145/85, saturating at 98% on room air. EKG shows atrial tachycardia. Chest x- ray shows no acute process. CBC unremarkable, BMP shows sodium of 134, bicarb 15, anion gap 19, creatinine 0.66, sugar 265, urine positive for glucose and ketones. Admitted as inpatient for diabetic ketoacidosis. Was started on IV in sulin, now switched over to subcu insulin. Patient is very noncompliant with his insulin regimen at home. A1c was 14.1. EGD completed shows diaphragmatic hiatus is at 40 cm, hiatal hernia, erosive esophagitis, acute gastric ulcers 3, gastritis with bleeding, acute duodenitis without bleeding, acute duodenal ulcers, biopsies were taken. Nausea and vomiting much improved once blood sugars have improved. Patient recommended to see herbicide sprayer and also counseled regarding medication compliance Patient seen and examined at bedside. Vital signs reviewed and stable. General: nontoxic, no distress, appears at stated age Derm: warm, dry Head: atraumatic, normocephalic, symmetric Eyes: EOMI, no lid lag, anicteric sclera Mouth: no lip lesion, mucus membranes moist Cardiovascular: S1S2 reg, no murmur Lungs: CTA bilateral, no rhonchi, no rales , no accessory muscle use Abdominal: soft, nontender to palpation, no guarding, no appreciable organomegaly Ext: no gross muscle atrophy, no edema, no contractures Neuro: CN II-XI grossly intact, no focal neuro deficits Psych: Alert, oriented, appropriate affect A total of 33 minutes of time were spent preparing this complex discharge s darrell. Patient was discharged on 01/16/23 at 10:13. Patient Condition at Discharge: Stable Plan - Discharge Summary Discharge Rx Participant: Yes New Discharge Prescriptions: New Insulin Detemir (Levemir) [Levemir] 26 unit SQ DAILY@0700 #7 each Pantoprazole [Protonix] 40 mg PO AC-BRKFST #90 tab Sucralfate [Carafate] 1 gm PO AC-TID #90 tab INSULIN ASPART (NovoLOG) [NovoLOG (formulary)] 9 unit SQ AC-TID #7 each Continue Aspirin [Adult Low Dose Aspirin EC] 81 mg PO DAILY Magnesium Oxide 400 mg PO DAILY Empagliflozin [Jardiance] 25 mg PO DAILY Sertraline HCl [Zoloft] 200 mg PO HS Atorvastatin [Lipitor] 20 mg PO DAILY metFORMIN HCL [Glucophage] 1,000 mg PO BID Acetaminophen Tab [Tylenol] 500 mg PO Q6HR PRN #40 tab PRN Reason: Fever And/ Or Pain Metoclopramide [Reglan] 5 mg PO ACHS PRN PRN Reason: Nausea Tamsulosin [Flomax] 0.4 mg PO DAILY traZODone HCL 150 mg PO HS Valsartan 320 mg PO DAILY Fluticasone Nasal [place] [Flonase Nasal [place]] 2 spr EA NOSTRIL DAILY Discontinued Insulin Glargine,Hum.rec.anlog [Lantus Solostar Pen] 60 unit SQ BID Omeprazole 40 mg PO DAILY Pioglitazone [Actos] 30 mg PO DAILY Sulfamethox-Tmp 400-80Mg [Bactrim SS 400-80 mg] 1 tab PO DAILY INSULIN LISPRO (humaLOG) [humaLOG] 45 unit SQ AC-TID Discharge Medication List Aspirin [Adult Low Dose Aspirin EC] 81 mg PO DAILY 12/24/17 [History] Atorvastatin [Lipitor] 20 mg PO DAILY 01/17/20 [History] Empagliflozin [Jardiance] 25 mg PO DAILY 01/17/20 [History] Magnesium Oxide 400 mg PO DAILY 01/17/20 [History] Sertraline HCl [Zoloft] 200 mg PO HS 01/17/20 [History] metFORMIN HCL [Glucophage] 1,000 mg PO BID 01/17/20 [History] Acetaminophen Tab [Tylenol] 500 mg PO Q6HR PRN #40 tab 06/26/20 [Rx] Fluticasone Nasal [place] [Flonase Nasal [place]] 2 spr EA NOSTRIL DAILY 01/14/23 [ History] Metoclopramide [Reglan] 5 mg PO ACHS PRN 01/14/23 [History] Tamsulosin [Flomax] 0.4 mg PO DAILY 01/14/23 [History] Valsartan 320 mg PO DAILY 01/14/23 [History] traZODone HCL 150 mg PO HS 01/14/23 [History] INSULIN ASPART (NovoLOG) [NovoLOG (formulary)] 9 unit SQ AC-TID #7 each 01/16/23 [Rx] Insulin Detemir (Levemir) [Levemir] 26 unit SQ DAILY@0700 #7 each 01/16/23 [Rx] Pantoprazole [Protonix] 40 mg PO AC-BRKFST #90 tab 01/16/23 [Rx] Sucralfate [Carafate] 1 gm PO AC-TID #90 tab 01/16/23 [Rx] Follow up Appointment(s)/Referral(s): Marta Swift MD [STAFF PHYSICIAN] - 1 Week (Office closed at this time; please call KENAN on Thursday to schedule a follow up appointment.) None,Stated [REFERRING] - 1-2 days (Please find a PCP and follow up KENAN.) Jing Orozco MD [STAFF PHYSICIAN] - 1 Week ([facility] for your diabetes. Office is closed at this time; please call KEANN on Thursday to schedule an appointment.) Patient Instructions/Handouts: Peptic Ulcer (DC), Gastritis (DC), Diabetic Gastroparesis (DC), Diabetic Ketoacidosis (DC), Diabetes and Nutrition (DC) Activity/Diet/Wound Care/Special Instructions: Please follow up with surgery for pathology results. Also see your PCP and herbicide sprayer. Discharge Disposition: HOME SELF-CARE
[2023-01-16 11:44] VITALS: BP 111/77; PULSE 99; RESP 16
== END 2023-01-16 14:24 | disposition home or self-care (01) ==
LOC: EC 09:02 → 6NMEDSUR 11:26 → 3SCARD 14:20
PROVIDERS: ADMIT Internal Medicine; ATTEND Internal Medicine
DX: K25.3 Acute gastric ulcer without hemorrhage or perforation (principal); K29.00 Acute gastritis without bleeding; K26.3 Acute duodenal ulcer without hemorrhage or perforation; I10 Essential (primary) hypertension; K44.9 Diaphragmatic hernia without obstruction or gangrene; N40.0 Benign prostatic hyperplasia without lower urinary tract symptoms; E11.10 Type 2 diabetes mellitus with ketoacidosis without coma; E11.65 Type 2 diabetes mellitus with hyperglycemia; E78.5 Hyperlipidemia, unspecified; J44.9 Chronic obstructive pulmonary disease, unspecified; K21.9 Gastro-esophageal reflux disease without esophagitis; F17.200 Nicotine dependence, unspecified, uncomplicated; Z83.3 Family history of diabetes mellitus; Z83.438 Family history of other disorder of lipoprotein metabolism and other lipidemia; Z79.84 Long term (current) use of oral hypoglycemic drugs; Z79.82 Long term (current) use of aspirin; Z79.4 Long term (current) use of insulin; Z79.899 Other long term (current) drug therapy; Z88.8 Allergy status to other drugs, medicaments and biological substances
CPT/HCPCS: 96365; 96366; 96361; 99285; 36415; 93005; 88305; 80051; 80053; 80048 ×2; 82565; 82803; 83735; 84100; 82947; 84520; 85025 ×3; 85610; 85730; 81001; 88342; 83036; 71046; 43239; G0378 ×4; J3480; J2704; J1644 ×3; J2001